=== PATIENT | male | born 1940 | race Caucasian/White ===

== ENCOUNTER → 2016-04-15 | Outpatient (CLI) | payer MEDICARE, BC ==
[2016-04-15 14:15] LABS: ABSOLUTE EOSINOPHILS # (AUTO) 0.1 10^3/uL (0.0-0.6); ABSOLUTE LYMPHOCYTES (AUTO) 2.1 10^3/uL (0.5-4.7); ABSOLUTE MONOCYTES (AUTO) 0.5 10^3/uL (0.1-1.4); ABSOLUTE NEUT (AUTO) 3.4 10^3/uL (1.7-8.2); BASOPHILS % (AUTO) 0.5 % (0-2); EOSINOPHILS % (AUTO) 1.9 % (0-6); HEMATOCRIT 34.7 % (37.9-51.0); HEMOGLOBIN 11.2 g/dL (13.5-17.0); HGB HCT DIFFERENCE -1.1; LYMPHOCYTES % (AUTO) 34.4 % (13-45); MEAN CORPUSCULAR HEMOGLOBIN 29.5 pg (27.0-33.4); MEAN CORPUSCULAR HGB CONC 32.3 g/dL (32.0-36.0); MEAN CORPUSCULAR VOLUME 91 fl (80-97); MONOCYTES % (AUTO) 8.3 % (3-13); RED BLOOD COUNT 3.79 10^6/uL (4.35-5.55); RED CELL DISTRIBUTION WIDTH 13.8 % (11.5-14.0); SEGMENTED NEUTROPHILS % (AUTO) 54.9 % (42-78); WHITE BLOOD COUNT 6.2 10^3/uL (4.0-10.5)
[2016-04-15 14:19] LABS: ALANINE AMINOTRANSFERASE 20 U/L (21-72); ALBUMIN 3.7 g/dL (3.5-5.0); ALKALINE PHOSPHATASE 43 U/L (38-126); ANION GAP 11 (5-19); ASPARTATE AMINO TRANSFERASE 17 U/L (17-59); BILIRUBIN,TOTAL 0.8 mg/dL (0.2-1.3); BLOOD UREA NITROGEN 15 mg/dL (7-20); CALCIUM 8.9 mg/dL (8.4-10.2); CARBON DIOXIDE 26 mmol/L (22-30); CHLORIDE 107 mmol/L (98-107); CREATININE RESULT 0.82 mg/dL (0.52-1.25); GLUCOSE 90 mg/dL (75-110); POTASSIUM 4.1 mmol/L (3.6-5.0); SODIUM 144.3 mmol/L (137-145); TOTAL PROTEIN 6.4 g/dL (6.3-8.2)
[2016-04-16 12:16] LABS: CHOLESTEROL 111.68 mg/dL (0-200); Direct HDL 43 mg/dL (>40); TRIGLYCERIDES 56 mg/dL (<150)
[2016-04-16 12:26] LABS: DIRECT LDL 58 mg/dL (<100)
== END ==
LOC: OD 12:36
PROVIDERS: ATTEND Internal Medicine
DX: E11.9 Type 2 diabetes mellitus without complications (principal); I10 Essential (primary) hypertension; E78.00 Pure hypercholesterolemia, unspecified; Z79.899 Other long term (current) drug therapy
CPT/HCPCS: 36415; 80053; 80061; 85025

== ENCOUNTER 2017-06-28 14:17 | Observation (INO) | payer BC, MEDICARE ==
--- NOTE | 2017-06-28 14:43 | ER Document Report ---
ED General - General Chief Complaint: General Weakness Stated Complaint: WEAKNESS Time Seen by Provider: 06/28/17 14:34 Mode of Arrival: Medic Information source: Patient, Emergency Med Personnel Notes: This is a 76-year-old man with a history of coronary artery disease (MA), CVA ( left weakness), diabetes with peripheral vascular disease (right BKA) who presents to the emergency room after an episode of generalized weakness and retrosternal nonradiating chest pain. EMS was called to the scene and they reported that his blood pressure was 115/73 with a pulse in the 50s, his Accu- Chek at that time was 143. He had already taken for aspirins (81 mg each). EMS reported that his chest pain had resolved by the time they arrived. Currently, he denies any weakness or chest pain TRAVEL OUTSIDE OF THE [place] IN LAST 30 DAYS: No - HPI Onset: Just prior to arrival Onset/Duration: Gradual Quality of pain: No pain Severity: None Pain Level: Denies Associated symptoms: Chest pain. denies: Fever, Shortness of breath Exacerbated by: Denies Relieved by: Denies Similar symptoms previously: No Recently seen / treated by doctor: No - Related Data Allergies/Adverse Reactions: No Known Allergies Allergy (Unverified 02/05/16 14:43) Past Medical History - General Information source: Patient - Social History Smoking Status: Never Smoker Cigarette use (# per day): No Chew tobacco use (# tins/day): No Frequency of alcohol use: None Drug Abuse: None Lives with: Family Family History: Reviewed & Not Pertinent Patient has suicidal ideation: No Patient has homicidal ideation: No - Past Medical History Cardiac Medical History: Reports: Hx Heart Attack, Hx Hypercholesterolemia, Hx Hypertension - WELL CONTROLLED Pulmonary Medical History: Denies: Hx Asthma Neurological Medical History: Reports: Hx Cerebrovascular Accident. Denies: Hx Seizures Endocrine Medical History: Reports: Hx Diabetes Mellitus Type 2 GI Medical History: Denies: Hx Hepatitis, Hx Hiatal Hernia, Hx Ulcer Infectious Medical History: Denies: Hx Hepatitis Past Surgical History: Denies: Hx Open Heart Surgery, Hx Pacemaker - Immunizations Hx Diphtheria, Pertussis, Tetanus Vaccination: Yes Review of Systems - Review of Systems Constitutional: denies: Chills, Fever EENT: No symptoms reported Cardiovascular: See HPI Respiratory: No symptoms reported Gastrointestinal: No symptoms reported Genitourinary: No symptoms reported Male Genitourinary: No symptoms reported Musculoskeletal: No symptoms reported Skin: No symptoms reported Hematologic/Lymphatic: No symptoms reported Neurological/Psychological: No symptoms reported Physical Exam - Vital signs Vitals: Pulse Ox 97 06/28/17 14:52 Notes: Physical exam: GENERAL: 76-year-old man, alert and oriented 3, no acute distress HEAD: Atraumatic, normocephalic. EYES: Pupils equal round and reactive to light, extraocular movements intact, sclera anicteric, conjunctiva are normal. ENT: TMs normal, nares patent, oropharynx clear without exudates. Moist mucous membranes. NECK: Normal range of motion, supple without obvious mass or JVD. LUNGS: Breath sounds clear to auscultation bilaterally and equal. No wheezes rales or rhonchi. HEART: Regular rate and rhythm without murmurs, rubs or gallops. ABDOMEN: Soft, normoactive bowel sounds. No tenderness to palpation. No guarding, no rebound. No masses appreciated. EXTREMITIES: Right BKA, left lower extremity with minimal edema, pulses 2+. NEUROLOGICAL: Cranial nerves II through XII grossly intact. Normal speech, moving all extremities. PSYCH: Normal mood, normal affect. SKIN: Warm, Dry, normal turgor, no rashes or lesions noted. Course - Vital Signs Vital signs: Temp Pulse Resp BP Pulse Ox 97.6 F 71 18 139/59 H 95 06/29/17 00:00 06/29/17 00:00 06/29/17 00:00 06/29/17 00:00 06/29/17 00:00 - Laboratory Result Diagrams: 06/28/17 13:40 06/28/17 13:40 Laboratory results interpreted by me: 06/28/17 06/28/17 13:40 13:40 RBC 3.78 L Hgb 11.4 L Hct 33.8 L BUN 25 H Est GFR (Non-Af Amer) 59 L Glucose 169 H Total Protein 6.2 L - Diagnostic Test Radiology reviewed: Image reviewed, Reports reviewed - CT showed old infarcts - EKG Interpretation by Me EKG shows normal: Sinus rhythm Rate: Bradycardia - EKG shows sinus bradycardia with a right bundle branch block , there are Q waves in 3-1/2, there is no acute ST depression or elevation. There is no EKG for comparison. Discharge - Discharge Clinical Impression: Chest pain Condition: Stable Disposition: ADMITTED OBSERVATION Admitting Provider: Hospitalist - Dr. Colon Unit Admitted: Telemetry
[2017-06-28 14:53] LABS: ABSOLUTE EOSINOPHILS # (AUTO) 0.1 10^3/uL (0.0-0.6); ABSOLUTE LYMPHOCYTES (AUTO) 2.1 10^3/uL (0.5-4.7); ABSOLUTE MONOCYTES (AUTO) 0.5 10^3/uL (0.1-1.4); ABSOLUTE NEUT (AUTO) 4.3 10^3/uL (1.7-8.2); BASOPHILS % (AUTO) 0.4 % (0-2); EOSINOPHILS % (AUTO) 2.1 % (0-6); HEMATOCRIT 33.8 % (37.9-51.0); HEMOGLOBIN 11.4 g/dL (13.5-17.0); LYMPHOCYTES % (AUTO) 30.3 % (13-45); MEAN CORPUSCULAR HEMOGLOBIN 30.1 pg (27.0-33.4); MEAN CORPUSCULAR HGB CONC 33.6 g/dL (32.0-36.0); MEAN CORPUSCULAR VOLUME 90 fl (80-97); MONOCYTES % (AUTO) 7.3 % (3-13); PLATELET COUNT 213 10^3/uL (150-450); RED BLOOD COUNT 3.78 10^6/uL (4.35-5.55); RED CELL DISTRIBUTION WIDTH 13.2 % (11.5-14.0); SEGMENTED NEUTROPHILS % (AUTO) 59.9 % (42-78); TOTAL CELLS COUNTED % (AUTO) 100 %; WHITE BLOOD COUNT 7.1 10^3/uL (4.0-10.5)
--- NOTE | 2017-06-28 14:57 | RADIOLOGY REPORT (SQ) ---
EXAM DESCRIPTION: CHEST SINGLE VIEW COMPLETED DATE/TIME: 06/28/2017 2:48 pm REASON FOR STUDY: chest pain COMPARISON: 12/27/2013 EXAM PARAMETERS: NUMBER OF VIEWS: One view. TECHNIQUE: Single frontal radiographic view of the chest acquired. RADIATION DOSE: NA LIMITATIONS: None. FINDINGS: LUNGS AND PLEURA: No opacities, masses or pneumothorax. No pleural effusion. MEDIASTINUM AND HILAR STRUCTURES: No masses. Contour normal. HEART AND VASCULAR STRUCTURES: Heart normal in size. Normal vasculature. BONES: No acute findings. HARDWARE: None in the chest. OTHER: No other significant finding. IMPRESSION: NO ACUTE RADIOGRAPHIC FINDING IN THE CHEST. TECHNICAL DOCUMENTATION: JOB ID: [id number] [email or web address]- All Rights Reserved Reading location - IP/workstation name: [email or web address]
[2017-06-28 15:09] LABS: ALANINE AMINOTRANSFERASE 26 U/L (21-72); ALBUMIN 3.8 g/dL (3.5-5.0); ALKALINE PHOSPHATASE 54 U/L (38-126); ANION GAP 11 (5-19); ASPARTATE AMINO TRANSFERASE 18 U/L (17-59); BILIRUBIN,DIRECT 0.1 mg/dL (0.0-0.4); BILIRUBIN,TOTAL 0.7 mg/dL (0.2-1.3); BLOOD UREA NITROGEN 25 mg/dL (7-20); CALCIUM 8.8 mg/dL (8.4-10.2); CARBON DIOXIDE 25 mmol/L (22-30); CHLORIDE 104 mmol/L (98-107); CREATINE KINASE 115 U/L (55-170); GLUCOSE 169 mg/dL (75-110); POTASSIUM 4.2 mmol/L (3.6-5.0); SODIUM 139.5 mmol/L (137-145); TOTAL PROTEIN 6.2 g/dL (6.3-8.2)
[2017-06-28] MEDS ORDERED: NORMAL SALINE 500 ML IV ONE (15:17)
[2017-06-28 15:21] LABS: CREATINE KINASE MB 2.11 ng/mL (<4.55)
[2017-06-28 15:22] LABS: TROPONIN I < 0.012 ng/mL
[2017-06-28] MEDS ORDERED: INSULIN LISPRO 100 UNIT/ML 3 ML VIAL SUBCUT PRN (17:22)
[2017-06-28] MEDS ORDERED: DEXTROSE 40% GEL 15 GM TUBE PO PRN ×2 (17:22)
[2017-06-28] MEDS ORDERED: DEXTROSE 50%-WATER 25 GM/50 ML DISP.SYRIN IV PRN ×2 (17:22)
[2017-06-28] MEDS ORDERED: GLUCAGON,HUMAN RECOMB 1 MG INJ IM PRN (17:22)
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
--- NOTE | 2017-06-28 17:42 | RADIOLOGY REPORT (SQ) ---
EXAM DESCRIPTION: CT HEAD WITHOUT COMPLETED DATE/TIME: 06/28/2017 5:32 pm REASON FOR STUDY: numbness G93.40 ENCEPHALOPATHY, UNSPECIFIED COMPARISON: None. TECHNIQUE: Axial images acquired through the brain without intravenous contrast. Images reviewed wi th bone, brain and subdural windows. Images stored on PACS. All CT scanners at this facility use dose modulation, iterative reconstruction, and/or weight based d osing when appropriate to reduce radiation dose to as low as reasonably achievable (ALARA). [facility]: Dose Right [facility]: CareDose [facility]: Dose Right [facility]: Teradose 4D [facility]: LaserLeap RADIATION DOSE: mGy. LIMITATIONS: None. FINDINGS: VENTRICLES: Prominent. CEREBRUM: No masses. No hemorrhage. No midline shift. Areas of low density in the white matter mos t likely due to chronic micro-vascular ischemic change. Small old infarct in the medial left occipit al lobe. No evidence for acute infarction. CEREBELLUM: No masses. No hemorrhage. Old infarct in the left cerebellar hemisphere. No evidence f or acute infarction. EXTRAAXIAL SPACES: Age-related involutional change. No fluid collections. No masses. ORBITS AND GLOBE: No intra- or extraconal masses. Normal contour of globe without masses. CALVARIUM: No fracture. PARANASAL SINUSES: No fluid or mucosal thickening. SOFT TISSUES: No mass or hematoma. OTHER: No other significant finding. IMPRESSION: CHRONIC CHANGES OF ATROPHY AND MICROVASCULAR ISCHEMIA. OLD INFARCTS IN THE LEFT CEREBEL LAR HEMISPHERE AND MEDIAL LEFT OCCIPITAL LOBE. NO ACUTE PROCESS. EVIDENCE OF ACUTE STROKE: NO. TECHNICAL DOCUMENTATION: JOB ID: [id number] Quality ID # [id number]: Final reports with documentation of one or more dose reduction techniques (e.g., Au tomated exposure control, adjustment of the mA and/or kV according to patient size, use of iterative reconstruction technique) 2010 [employer]- All Rights Reserved Reading location - IP/workstation name: [email or web address]
--- NOTE | 2017-06-28 19:06 | EKG REPORT ---
SEVERITY:- ABNORMAL ECG - SINUS RHYTHM RBBB AND LPFB INFERIOR INFARCT, AGE INDETERMINATE : Confirmed by: Eric Graf MD 28-Jun-2017 19:05:06
[2017-06-28] MEDS: METOPROLOL SUCCINATE 25 MG TAB.SR.24H PO SCH (20:26)
[2017-06-28] MEDS ORDERED: TAMSULOSIN HCL 0.4 MG CAP.SR.24H PO SCH (22:00)
[2017-06-29 05:26] LABS: HEMATOCRIT 31.8 % (37.9-51.0); HEMOGLOBIN 10.8 g/dL (13.5-17.0); MEAN CORPUSCULAR HEMOGLOBIN 30.6 pg (27.0-33.4); MEAN CORPUSCULAR HGB CONC 34.1 g/dL (32.0-36.0); MEAN CORPUSCULAR VOLUME 90 fl (80-97); PLATELET COUNT 181 10^3/uL (150-450); RED BLOOD COUNT 3.53 10^6/uL (4.35-5.55); RED CELL DISTRIBUTION WIDTH 13.3 % (11.5-14.0); WHITE BLOOD COUNT 5.5 10^3/uL (4.0-10.5)
[2017-06-29 05:58] LABS: ANION GAP 9 (5-19); BLOOD UREA NITROGEN 24 mg/dL (7-20); CALCIUM 8.9 mg/dL (8.4-10.2); CARBON DIOXIDE 25 mmol/L (22-30); CHLORIDE 108 mmol/L (98-107); CHOLESTEROL 134.87 mg/dL (0-200); GLUCOSE 109 mg/dL (75-110); SODIUM 142.1 mmol/L (137-145); TRIGLYCERIDES 114 mg/dL (<150)
[2017-06-29 06:09] LABS: DIRECT LDL 77 mg/dL (<100)
[2017-06-29 08:29] VITALS: BP 130/78
[2017-06-29] MEDS: METOPROLOL SUCCINATE 25 MG TAB.SR.24H PO SCH (09:16)
[2017-06-29] MEDS ORDERED: LISINOPRIL 5 MG TABLET PO SCH (10:00)
[2017-06-29] MEDS ORDERED: DONEPEZIL HCL 5 MG TABLET PO SCH (10:00)
[2017-06-29] MEDS ORDERED: ENOXAPARIN SODIUM INJ 40 MG/0.4 ML DISP.SYRIN SUBCUT SCH (10:00)
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
== END 2017-06-29 14:21 | disposition home or self-care (01) ==
LOC: ER 14:17 → EH 16:27 → 4S 18:49
PROVIDERS: ADMIT Internal Medicine; ATTEND Internal Medicine
DX: R07.9 Chest pain, unspecified (principal); I45.10 Unspecified right bundle-branch block; I10 Essential (primary) hypertension; E11.51 Type 2 diabetes mellitus with diabetic peripheral angiopathy without gangrene; I69.354 Hemiplegia and hemiparesis following cerebral infarction affecting left non-dominant side; I25.10 Atherosclerotic heart disease of native coronary artery without angina pectoris; F03.90 Unspecified dementia, unspecified severity, without behavioral disturbance, psychotic disturbance, mood disturbance, and anxiety; I25.2 Old myocardial infarction; Z89.511 Acquired absence of right leg below knee
CPT/HCPCS: 93005; 99285; 96360; 36415 ×2; 82553; 82962 ×2; 82550; 85025; 85027; 80048; 80053; 84484; 83036; 80061; 71045; 70450; 93010; G0378 ×3; A9270 ×5; J1650; J3490; J7040; J1815

== ENCOUNTER 2018-06-18 00:41 | Emergency (ER) | payer MEDICARE ==
--- NOTE | 2018-06-18 01:39 | ER Document Report ---
Addendum entered and electronically signed by YG MCCLOUD LCSWA 06/18/18 13:36: Discharge - Discharge Clinical Impression: Dementia Qualifiers: Dementia type: unspecified type Dementia behavioral disturbance: with behavioral disturbance Qualified Code(s): F03.91 - Unspecified dementia with behavioral disturbance Clinical Impression: (Ruled Out): Mental disorder Condition: Stable Disposition: HOME, SELF-CARE Additional Instructions: You have been evaluated both medical and behavioral health teams have been deemed appropriate for discharge. You are highly encouraged to follow-up with neurology. You have been provided prescriptions for Depakote 250 mg twice daily, BuSpar 5 mg twice daily, and risperidone 0.25 mg every morning at 8 AM and every afternoon at 4 PM as needed; please take as directed. You have been p rovided resources for both assisted living and nursing homes In addition to mobile crisis contact information. AT ANY TIME, IF YOUR SYMPTOMS CHANGE SIGNIFICANTLY OR WORSEN OR YOU DEVELOP NEW SYMPTOMS, RETURN TO THE EMERGENCY DEPARTMENT IMMEDIATELY FOR RE-EVALUATION. Referrals: ELIO PEREZ MD [Primary Care Provider] - Follow up as needed [facility] Team [Outside] - Follow up as needed Original Note: ED General - General Chief Complaint: Psych Problem Stated Complaint: IVC Time Seen by Provider: 06/18/18 01:39 Notes: Patient is a 77-year-old male that presents to the emergency department for chief complaint of domestic argument. Patient states that he got into an argument with his earlier this morning, she apparently got in her car and he believes she drove to her son's house and she called police and filled out IVC paperwork, alleging that the patient has a making threats towards family members and has been aggressive, he apparently is on medication but may not be taking it as directed and therefore IVC paperwork was filled out. At this time the patient is very pleasant, denies having any pain, denies any complaints, denies hallucinations, and denies threatening anybody, stating he only got into an argument. He denies any physical altercations. Past Medical History: Diabetes, peripheral vascular disease, dementia Past Surgical History: Right lower extremity amputation Social History: Denies tobacco, alcohol or illicit drug use. Lives at home with family. Family History: Reviewed and noncontributory for presenting illness Allergies: Reviewed, see documented allergy list. REVIEW OF SYSTEMS: Other than noted above, the 12 point review of systems was reviewed with the patient and were negative, all pertinent findings are included in the HPI. PHYSICAL EXAMINATION: Vital signs reviewed, nursing noted reviewed. GENERAL: Well-appearing, well-nourished and in no acute distress. HEAD: Atraumatic, normocephalic. EYES: Eyes appear normal, extraocular movements intact, sclera anicteric, conjunctiva are normal. ENT: nares patent, oropharynx clear without exudates. Moist mucous membranes. NECK: Normal range of motion, supple without lymphadenopathy LUNGS: Breath sounds clear to auscultation bilaterally and equal. No wheezes rales or rhonchi. HEART: Regular rate and rhythm without murmurs ABDOMEN: Soft, nontender, normoactive bowel sounds. No rebound, guarding, or rigidity. No masses appreciated. EXTREMITIES: Right below the knee amputation, patient has 3+ pitting edema in the left lower extremity, no signs of cellulitis, nontender to palpate, the rest the extremity exam is grossly unremarkable. NEUROLOGICAL: No focal neurological deficits. Moves all extremities spontaneously Motor and sensory grossly intact on exam. PSYCH: Normal mood, normal affect. SKIN: Warm, Dry, normal turgor, no rashes or lesions noted on exposed skin TRAVEL OUTSIDE OF THE [place] IN LAST 30 DAYS: No - Related Data Allergies/Adverse Reactions: No Known Allergies Allergy (Unverified 02/05/16 14:43) Past Medical History - Social History Smoking Status: Never Smoker Family History: Reviewed & Not Pertinent - Past Medical History Cardiac Medical History: Reports: Hx Heart Attack, Hx Hypercholesterolemia, Hx Hypertension - WELL CONTROLLED Pulmonary Medical History: Denies: Hx Asthma Neurological Medical History: Reports: Hx Cerebrovascular Accident. Denies: Hx Seizures Endocrine Medical History: Reports: Hx Diabetes Mellitus Type 2 Renal/ Medical History: Denies: Hx Peritoneal Dialysis GI Medical History: Denies: Hx Hepatitis, Hx Hiatal Hernia, Hx Ulcer Infectious Medical History: Denies: Hx Hepatitis Past Surgical History: Denies: Hx Open Heart Surgery, Hx Pacemaker - Immunizations Hx Diphtheria, Pertussis, Tetanus Vaccination: Yes Physical Exam - Vital signs Vitals: Temp Pulse Resp BP Pulse Ox 98.2 F 70 17 139/64 H 96 06/18/18 01:05 06/18/18 01:05 06/18/18 01:05 06/18/18 01:05 06/18/18 01:05 Course - Re-evaluation Re-evalutation: Patient seen and examined, vital signs reviewed. Medical screening testing was ordered including bloodwork, EKG, and toxicology. Results of testing were reviewed. Testing demonstrated mild elevation of the patient's renal function from prior studies, will give him a 500 mL fluid bolus, possible mild dehydration. Patient has been stable from a hemodynamic standpoint. At this point I feel that the patient is medically cleared and can be further evaluated from a psychiatric standpoint for final disposition from the emergency department. Patient updated on plan of care. Laboratory 06/18/18 06/18/18 01:45 01:45 WBC 6.0 RBC 3.77 L Hgb 11.6 L Hct 33.8 L MCV 90 MCH 30.8 MCHC 34.3 RDW 13.2 Plt Count 190 Seg Neutrophils % 47.5 Lymphocytes % 39.3 Monocytes % 9.9 Eosinophils % 2.9 Basophils % 0.4 Absolute Neutrophils 2.8 Absolute Lymphocytes 2.3 Absolute Monocytes 0.6 Absolute Eosinophils 0.2 Absolute Basophils 0.0 Sodium 139.3 Potassium 4.5 Chloride 105 Carbon Dioxide 23 Anion Gap 11 BUN 28 H Creatinine 1.28 H Est GFR ( Amer) > 60 Est GFR (Non-Af Amer) 54 L Glucose 262 H Calcium 9.0 Total Bilirubin 0.6 Direct Bilirubin 0.2 Neonat Total Bilirubin Not Reportable Neonat Direct Bilirubin Not Reportable Neonat Indirect Bili Not Reportable AST 13 L ALT 11 L Alkaline Phosphatase 55 Total Protein 6.8 Albumin 3.9 Salicylates < 1.0 L Acetaminophen < 10 L Serum Alcohol < 10 - Vital Signs Vital signs: Temp Pulse Resp BP Pulse Ox 98.2 F 70 17 139/64 H 96 06/18/18 01:05 06/18/18 01:05 06/18/18 01:05 06/18/18 01:05 06/18/18 01:05 - Laboratory Result Diagrams: 06/18/18 01:45 06/18/18 01:45 Laboratory results interpreted by me: 06/18/18 06/18/18 01:45 01:45 RBC 3.77 L Hgb 11.6 L Hct 33.8 L BUN 28 H Creatinine 1.28 H Est GFR (Non-Af Amer) 54 L Glucose 262 H AST 13 L ALT 11 L Salicylates < 1.0 L Acetaminophen < 10 L - EKG Interpretation by Me Additional EKG results interpreted by me: EKG demonstrates sinus rhythm with first-degree AV block with a ventricular rate of 62 bpm, normal axis, normal intervals, T wave inversions in leads III and aVF, this is compared with the prior EKG from 06/28/2017, without significant change. Discharge - Discharge Clinical Impression: Mental disorder Condition: Stable Disposition: PSYCH HOSP/UNIT
[2018-06-18 02:11] LABS: ABSOLUTE EOSINOPHILS # (AUTO) 0.2 10^3/uL (0.0-0.6); ABSOLUTE LYMPHOCYTES (AUTO) 2.3 10^3/uL (0.5-4.7); ABSOLUTE MONOCYTES (AUTO) 0.6 10^3/uL (0.1-1.4); ABSOLUTE NEUT (AUTO) 2.8 10^3/uL (1.7-8.2); BASOPHILS % (AUTO) 0.4 % (0-2); EOSINOPHILS % (AUTO) 2.9 % (0-6); HEMATOCRIT 33.8 % (37.9-51.0); HEMOGLOBIN 11.6 g/dL (13.5-17.0); LYMPHOCYTES % (AUTO) 39.3 % (13-45); MEAN CORPUSCULAR HEMOGLOBIN 30.8 pg (27.0-33.4); MEAN CORPUSCULAR HGB CONC 34.3 g/dL (32.0-36.0); MEAN CORPUSCULAR VOLUME 90 fl (80-97); MONOCYTES % (AUTO) 9.9 % (3-13); PLATELET COUNT 190 10^3/uL (150-450); RED BLOOD COUNT 3.77 10^6/uL (4.35-5.55); RED CELL DISTRIBUTION WIDTH 13.2 % (11.5-14.0); SEGMENTED NEUTROPHILS % (AUTO) 47.5 % (42-78); TOTAL CELLS COUNTED % (AUTO) 100 %
[2018-06-18 02:22] LABS: ALANINE AMINOTRANSFERASE 11 U/L (21-72); ALBUMIN 3.9 g/dL (3.5-5.0); ALKALINE PHOSPHATASE 55 U/L (38-126); ANION GAP 11 (5-19); ASPARTATE AMINO TRANSFERASE 13 U/L (17-59); BILIRUBIN,DIRECT 0.2 mg/dL (0.0-0.4); BILIRUBIN,TOTAL 0.6 mg/dL (0.2-1.3); BLOOD UREA NITROGEN 28 mg/dL (7-20); CARBON DIOXIDE 23 mmol/L (22-30); CHLORIDE 105 mmol/L (98-107); GLUCOSE 262 mg/dL (75-110); POTASSIUM 4.5 mmol/L (3.6-5.0); SODIUM 139.3 mmol/L (137-145); TOTAL PROTEIN 6.8 g/dL (6.3-8.2)
[2018-06-18 02:26] LABS: ACETAMINOPHEN < 10 ug/mL (10-30); ALCOHOL < 10 mg/dL (NONE DETECTED); SALICYLATE < 1.0 mg/dL (2.0-20.0)
[2018-06-18] MEDS ORDERED: NORMAL SALINE 500 ML IV ONE (02:28)
[2018-06-18 03:40] LABS: APPEARANCE,URINE CLEAR; BILIRUBIN,URINE NEGATIVE (NEGATIVE); COLOR,URINE STRAW; GLUCOSE, URINE 50 mg/dL (NEGATIVE); KETONES,URINE NEGATIVE (NEGATIVE); LEUKOCYTE ESTERASE,URINE NEGATIVE (NEGATIVE); NITRITE,URINE NEGATIVE (NEGATIVE); PROTEIN,URINE NEGATIVE (NEGATIVE); URINE SPECIFIC GRAVITY 1.011; UROBILINOGEN,URINE NEGATIVE mg/dL (<2.0)
[2018-06-18 03:58] LABS: URINE AMPHETAMINES SCREEN NEGATIVE; URINE BARBITURATES SCREEN NEGATIVE; URINE BENZODIAZEPINES SCREEN NEGATIVE; URINE COCAINE SCREEN NEGATIVE; URINE MARIJUANA (THC) SCREEN NEGATIVE; URINE METHADONE SCREEN NEGATIVE; URINE PHENCYCLIDINE SCREEN NEGATIVE
--- NOTE | 2018-06-18 10:08 | ER Document Report ---
Doctor's Note Notes: 06/18/18 10:03 Patient with no complaints this morning. No issues per nursing. Labs within normal limits. Vitals stable. Mental health to see.
[2018-06-18] MEDS ORDERED: RISPERIDONE 0.25 MG TABLET PO ONE (13:56)
[2018-06-18 16:10] VITALS: BP 156/55
--- NOTE | 2018-06-18 23:00 | EKG REPORT ---
SEVERITY:- ABNORMAL ECG - SINUS RHYTHM RBBB AND LPFB INFERIOR INFARCT, AGE INDETERMINATE : Confirmed by: Kevin Amaya 18-Jun-2018 22:59:21
--- NOTE | 2018-06-19 13:48 | PSYCHOLOGICAL NOTE ---
Psych Note - Psych Note Date seen by psych provider: 06/18/18 Time seen by psych provider: 07:45 Psych Note: Reason for Consult: IVC Consent permissions: Patient's , Jayne Patient is a 77-year-old male that presents to the emergency department under IVC for chief complaint of domestic argument. Patient discloses that he arrived after "me and my had a heated argument... I think she called that is why I am here." Patient reports this is never happened before. He denies any thoughts of wanting to harm himself or others; patient's tone becomes more aggressive and he became louder. When asked why patient was becoming was set for these questions he reports that he had been asked these multiple times and has stated multiple times that he is not having thoughts of wanting harm himself or others and states that he should not have to have come in here just because he got into what argument with his . He denies any other mental health concerns and states he does not have a mental health diagnosis. He reports that he has had the same doctor for many years; Dr. Franco. Clinician spoke with patient's Roro who reports that the patient started argument and just "blew up." She reports that he has had a "terrible temper" and will start shaking and swinging his walking stick at her. She reports that this happens quite a few times in the last 5 years. She denies this happened prior to that identifying that since his leg was amputated she was told he lost significant amount of blood and they were concerned that it may affect his memory her mind. She denies that the patient has a neurologist however identifies that he wakes up happy however by afternoon he starts to get angry and by night behaviors become significant. Clinician discussed obtaining neurological evaluation. Chart review conducted patient had head CT On 06/28/2017 which noted chronic changes of atrophy and microvascular ischemia changes. An old infarct in the left cerebellar hemisphere and medial left occipital lobe was also noted. Patient is alert and orientated to person, place, time and circumstance. Mood is overall euthymic however does become irritable on end of evaluation (this was due to the patient not wanting to answer questions he felt he had answered on multiple occasions); congruent affect. Patient denies suicidal and homicidal ideation. Delusions are absent behaviors congruent with intact reality based presentation i.e. organized and linear thought process. Eye contact is well- maintained. Conversational speech is within normal rate, tone and prosody. Intellectual abilities appear to be within the average range. Attention and concentration are fair. Insight, judgment, impulse control are fair. Medication recommendations per [facility]'s contracted psychiatrist Dr. Francine URIAS are as follows Depakote 250 mg twice daily BuSpar 5 mg twice daily risperidone 0.25mg every morning at 8 AM and every evening at 4 PM as needed Probable unspecified neurocognitive degenerative disease; please consult neurology Impression\\plan: Patient is recommended for rescind of IVC and is cleared from acute psychiatric services. Patient does not meet IVC criteria per [place] GS 122C. Patient presents with probable neurocognitive degenerative disease and is recommended to follow-up with neurology. Medication recommendations have been provided to assist with behavioral difficulties. Resources have been provided to patient's in regards to higher level of care i.e. [place] [facility] or memory care units. Clinician discussed in depth importance of going to neurology for a formal diagnosis. Dr. Ly was consulted to care management this patient; attending physicians in agreement with recommendations and disposition.
== END 2018-06-18 15:50 | disposition home or self-care (01) ==
LOC: ER 00:41
DX: F03.91 Unspecified dementia, unspecified severity, with behavioral disturbance (principal); E11.51 Type 2 diabetes mellitus with diabetic peripheral angiopathy without gangrene; I44.0 Atrioventricular block, first degree; R60.0 Localized edema; I10 Essential (primary) hypertension; Z63.0 Problems in relationship with spouse or partner
CPT/HCPCS: 93005; 99285; 96360; 36415; 80307 ×4; 85025; 80053; 81001; 93010; A9270; J7040; J3490

== ENCOUNTER 2019-11-24 22:31 | Inpatient (IN) | payer MEDICARE ==
--- NOTE | 2019-11-17 23:09 | ER Document Report ---
ED General - General Chief Complaint: Altered Mental Status Stated Complaint: INCREASING AMS Time Seen by Provider: 11/17/19 22:52 Notes: Patient is a 79-year-old male who comes emergency department for chief complaint of worsening altered mental status, confusion, and combativeness at home. EMS gave patient 2.5 mg IM Versed because he was combative on arrival. Patient currently lives at home with his family. No reported symptoms or injuries per EMS, he has not had a fever, he did not have a fall. Patient has dementia and is confused at baseline, he has hypertension, type 2 diabetes, hyperlipidemia. He is not on a blood thinner. Patient has a right BKA. Patient has a letter with him from home stating tests that he needs to have performed for him to be placed in long-term care with a note written presumably by his primary care provider stating that he needs long-term care placement. TRAVEL OUTSIDE OF THE [place] IN LAST 30 DAYS: No - Related Data Allergies/Adverse Reactions: No Known Allergies Allergy (Verified 06/30/18 11:52) Home Medications: Janumet XR, Pravastatin, Quetiapine fumarate, Glimepiride, Lisinopril, Metroprolol, Isosorbide mononitrate Past Medical History - General Information source: Emergency Med Personnel - Social History Smoking Status: Unknown if Ever Smoked Frequency of alcohol use: None Drug Abuse: None Lives with: Family Family History: Reviewed & Not Pertinent - Past Medical History Cardiac Medical History: Reports: Hx Heart Attack, Hx Hypercholesterolemia, Hx Hypertension - WELL CONTROLLED Pulmonary Medical History: Denies: Hx Asthma Neurological Medical History: Reports: Hx Cerebrovascular Accident. Denies: Hx Seizures Endocrine Medical History: Reports: Hx Diabetes Mellitus Type 2 Renal/ Medical History: Denies: Hx Peritoneal Dialysis GI Medical History: Denies: Hx Hepatitis, Hx Hiatal Hernia, Hx Ulcer Infectious Medical History: Denies: Hx Hepatitis Past Surgical History: Denies: Hx Open Heart Surgery, Hx Pacemaker - Immunizations Hx Diphtheria, Pertussis, Tetanus Vaccination: Yes Review of Systems - Review of Systems Constitutional: No symptoms reported EENT: No symptoms reported Cardiovascular: No symptoms reported Respiratory: No symptoms reported Gastrointestinal: No symptoms reported Genitourinary: No symptoms reported Male Genitourinary: No symptoms reported Musculoskeletal: No symptoms reported Skin: No symptoms reported Hematologic/Lymphatic: No symptoms reported Neurological/Psychological: See HPI Physical Exam - Vital signs Vitals: Resp BP 18 120/49 L 11/17/19 22:55 11/17/19 22:55 - Notes Notes: GENERAL: Alert, interacts well. No acute distress. HEAD: Normocephalic, atraumatic. EYES: Pupils equal, round, and reactive to light. Extraocular movements intact. ENT: Oral mucosa moist, tongue midline. Oropharynx unremarkable. Airway patent. NECK: Full range of motion. Supple. Trachea midline. No lymphadenopathy. LUNGS: Clear to auscultation bilaterally, no wheezes, rales, or rhonchi. No respiratory distress. Non-tender chest wall. HEART: Regular rate and rhythm. No murmur ABDOMEN: Soft, non-tender. Non-distended. EXTREMITIES: Right BKA. Otherwise unremarkable. BACK: no cervical, thoracic, lumbar midline tenderness. No saddle anesthesia, normal distal neurovascular exam. NEUROLOGICAL: Alert but not answering any questions appropriately. Normal speech. Cranial nerves II through XII grossly intact. Strength 5/5 in all extremities. PSYCH: Normal affect, normal mood. SKIN: Warm, dry, normal turgor. No rashes or lesions noted. Course - Re-evaluation Re-evalutation: Patient initially cooperative but demented and confused, he initially cooperated with full work-up as well. He has no signs of trauma, physical examination is unremarkable except for his confusion. Vital signs unremarkable. I did reevaluate patient, patient attempted to strike me with his right fist and started yelling "you are an asshole" at me. He continued to repeat this and appeared very agitated and angry. I was unable to console or talk patient down from this. As result patient was given Haldol IM and responded to this well. This was a significant change from patient being friendly and cooperative on my initial evaluation. CT of the head unremarkable, chest X unremarkable, CBC, chemistry showing slightly elevated creatinine at 1.5 but no significant change from prior. Troponin is not significantly elevated. EKG does show what appears to be atrial fibrillation, I do not have record of this in the past. I discussed with Dr. Hubbard. EKG was repeated and again appears to show atrial fibrillation with controlled rate. Patient is on metoprolol. He does not recommend anticoagulation at this time, he does not feel that patient requires hospitalization for work-up of rate control new onset A. fib, he states that patient can simply routinely see primary care in regards to this given the situation. Urinalysis unremarkable. I discussed disposition, we discussed with family and they state that they cannot pick him up and cannot care for him and have run into difficulties trying to get him into local long-term care. As result case management will be consulted and patient will become a social hold. - Vital Signs Vital signs: Temp Pulse Resp BP Pulse Ox 98 F 100 20 118/55 L 98 11/18/19 05:20 11/18/19 05:20 11/18/19 05:20 11/18/19 05:20 11/18/19 05:20 - Laboratory Result Diagrams: 11/18/19 00:23 11/18/19 00:23 Laboratory results interpreted by me: 11/18/19 11/18/19 11/18/19 00:23 00:23 03:50 RDW 14.2 H Seg Neutrophils % 79.0 H BUN 38 H Creatinine 1.52 H Est GFR ( Amer) 54 L Est GFR (MDRD) Non-Af 44 L Glucose 145 H Urine Ketones TRACE H - EKG Interpretation by Me Additional EKG results interpreted by me: EKG shows atrial fibrillation without rapid ventricular response. Right bundle branch block present but this is not new. No T wave inversions or ST segment changes in consecutive leads. No significant change from prior except for the atrial fibrillation. Discharge - Discharge Clinical Impression: Inability to perform activities of daily living, Aggressive behavior Dementia Qualifiers: Dementia type: unspecified type Dementia behavioral disturbance: with behavioral disturbance Qualified Code(s): F03.91 - Unspecified dementia with behavioral disturbance Condition: Stable Disposition: PSYCH HOSP/UNIT
[2019-11-17] MEDS: HALOPERIDOL 5 MG TABLET PO ONE ×2 (23:35→23:37)
--- NOTE | 2019-11-17 23:46 | RADIOLOGY REPORT (SQ) ---
EXAM DESCRIPTION: XR CHEST 1 VIEW COMPLETED DATE/TME: 11/17/2019 23:04 CLINICAL HISTORY: 79 years, Male, AMS COMPARISON: 06/28/2017 chest NUMBER OF VIEWS: 1 TECHNIQUE: Portable chest LIMITATIONS: None. FINDINGS: The heart size is stable. Mild atheromatous change of the thoracic aorta. Minor fibrotic changes in the lung bases. Lungs are otherwise clear. No pneumothorax IMPRESSION: No acute cardiopulmonary process copyright 2010 [employer]- All Rights Reserved
--- NOTE | 2019-11-17 23:59 | RADIOLOGY REPORT (SQ) ---
EXAM DESCRIPTION: RadLex: CT HEAD WITHOUT IV CONTRAST CLINICAL HISTORY: 79 years Male; AMS; TECHNIQUE: Noncontrast CT head. All CT scans at this facility use dose modulation, iterative reconstruction, and/or weight based dosing when appropriate to reduce radiation dose to as low as reasonably achievable. COMPARISON: CT 06/28/2017 FINDINGS: No acute hemorrhage or mass effect. Encephalomalacia in the left cerebellar hemisphere and both occipital lobes is again noted. No acute cortical edema. Mild low-density changes in the cerebral white matter are again noted, nonspecific but typical for chronic small vessel disease. Ventricles and cisterns are preserved. Visualized portions of paranasal sinuses and mastoids are clear. Visualized portions of the calvarium are within normal limits. IMPRESSION: 1. No acute intracranial findings. 2. Chronic ischemic changes as on prior exam.
[2019-11-18 00:50] LABS: ABSOLUTE EOSINOPHILS # (AUTO) 0.1 10^3/uL (0.0-0.6); ABSOLUTE LYMPHOCYTES (AUTO) 1.1 10^3/uL (0.5-4.7); ABSOLUTE MONOCYTES (AUTO) 0.5 10^3/uL (0.1-1.4); ABSOLUTE NEUT (AUTO) 6.3 10^3/uL (1.7-8.2); BASOPHILS % (AUTO) 0.2 % (0-2); EOSINOPHILS % (AUTO) 0.7 % (0-6); HEMATOCRIT 42.1 % (37.9-51.0); HEMOGLOBIN 14.2 g/dL (13.5-17.0); LYMPHOCYTES % (AUTO) 13.9 % (13-45); MEAN CORPUSCULAR HEMOGLOBIN 30.8 pg (27.0-33.4); MEAN CORPUSCULAR HGB CONC 33.9 g/dL (32.0-36.0); MEAN CORPUSCULAR VOLUME 91 fl (80-97); MONOCYTES % (AUTO) 6.2 % (3-13); PLATELET COUNT 206 10^3/uL (150-450); RED BLOOD COUNT 4.62 10^6/uL (4.35-5.55); RED CELL DISTRIBUTION WIDTH 14.2 % (11.5-14.0); TOTAL CELLS COUNTED % (AUTO) 100 %
[2019-11-18 01:06] LABS: ALBUMIN 4.4 g/dL (3.5-5.0); ALKALINE PHOSPHATASE 55 U/L (38-126); ANION GAP 12 (5-19); ASPARTATE AMINO TRANSFERASE 29 U/L (17-59); BILIRUBIN,TOTAL 1.1 mg/dL (0.2-1.3); BLOOD UREA NITROGEN 38 mg/dL (7-20); CALCIUM 9.5 mg/dL (8.4-10.2); CARBON DIOXIDE 27 mmol/L (22-30); CHLORIDE 104 mmol/L (98-107); GLUCOSE 145 mg/dL (75-110); POTASSIUM 4.8 mmol/L (3.6-5.0); TOTAL PROTEIN 7.6 g/dL (6.3-8.2)
[2019-11-18 04:18] LABS: APPEARANCE,URINE CLEAR; BILIRUBIN,URINE NEGATIVE (NEGATIVE); COLOR,URINE YELLOW; GLUCOSE, URINE NEGATIVE (NEGATIVE); KETONES,URINE TRACE mg/dL (NEGATIVE); LEUKOCYTE ESTERASE,URINE NEGATIVE (NEGATIVE); NITRITE,URINE NEGATIVE (NEGATIVE); PROTEIN,URINE NEGATIVE (NEGATIVE); URINE SPECIFIC GRAVITY 1.015; UROBILINOGEN,URINE NEGATIVE mg/dL (<2.0)
--- NOTE | 2019-11-18 10:09 | EKG REPORT ---
SEVERITY:- ABNORMAL ECG - ATRIAL FIBRILLATION VENTRICULAR PREMATURE COMPLEXES RBBB AND LPFB : Confirmed by: Kevin Amaya 18-Nov-2019 10:08:08
--- NOTE | 2019-11-18 10:09 | EKG REPORT ---
SEVERITY:- ABNORMAL ECG - ATRIAL FIBRILLATION, V-RATE 51-87 RBBB AND LPFB PROBABLE INFERIOR INFARCT, AGE INDETERMINATE : Confirmed by: Kevin Amaya 18-Nov-2019 10:08:19
[2019-11-18] MEDS: GLIMEPIRIDE 4 MG TABLET PO SCH ×2 (10:32→18:21)
[2019-11-18] MEDS: ISOSORBIDE MONONITRATE 20 MG TABLET PO SCH ×3 (10:32→18:33)
[2019-11-18] MEDS: METOPROLOL SUCCINATE 25 MG TAB.SR.24H PO SCH ×2 (10:32→18:22)
[2019-11-18] MEDS: LISINOPRIL 5 MG TABLET PO SCH (10:32)
--- NOTE | 2019-11-18 12:01 | PSYCHOLOGICAL NOTE ---
Psych Note - Psych Note Date seen by psych provider: 11/18/19 Time seen by psych provider: 11:30 Psych Note: Reason for Consult: Medication recommendations Patient is unable to engage in evaluation due to AMS. Chart review conducted. Patient was seen by the behavioral health team on 06/19/2019 and was provided medication recommendations; unfortunately, patient's PCM did not follow recommendations. Patient's behaviors have continued and family report they are unable to continue caring for the patient. Medication recommendations per [facility]'s contracted psychiatrist Dr. Francine URIAS are as follows: Please discontinue home medications of prozac and seroquel Please start Depakote 250 mg twice daily Please start BuSpar 5 mg twice daily Please start risperidone 0.25mg every morning at 8 AM and every evening at 4 PM as needed Impression\plan: Patient is cleared from acute psychiatric services. Patient presents with probable neurocognitive degenerative disease and is recommended to follow-up with neurology. Medication recommendations have been provided to assist with behavioral difficulties. Dr. Ly was consulted to care management this patient; attending physicians in agreement with recommendations and disposition.
[2019-11-18] MEDS: RISPERIDONE 0.25 MG TABLET PO SCH (18:20)
[2019-11-18] MEDS: DIVALPROEX SODIUM 250 MG TABLET.DR PO SCH (18:21)
[2019-11-18] MEDS: BUSPIRONE HCL 10 MG TABLET PO SCH (18:22)
[2019-11-19] MEDS: RISPERIDONE 0.25 MG TABLET PO SCH ×2 (10:16→22:42)
[2019-11-19] MEDS: GLIMEPIRIDE 4 MG TABLET PO SCH ×2 (10:16→22:45)
[2019-11-19] MEDS: BUSPIRONE HCL 10 MG TABLET PO SCH ×2 (10:16→22:42)
[2019-11-19] MEDS: DIVALPROEX SODIUM 250 MG TABLET.DR PO SCH ×2 (10:16→22:42)
[2019-11-19] MEDS: METOPROLOL SUCCINATE 25 MG TAB.SR.24H PO SCH ×2 (10:16→22:42)
[2019-11-19] MEDS: ISOSORBIDE MONONITRATE 20 MG TABLET PO SCH ×3 (10:17→22:26)
[2019-11-19] MEDS: LISINOPRIL 5 MG TABLET PO SCH (10:17)
--- NOTE | 2019-11-19 12:36 | ER Document Report ---
Doctor's Note Notes: 11/19/19 12:34 Patient seen and examined. He was eating breakfast. He states he slept well. He has no complaints of pain or other issues. Labs reviewed, largely unremarkable. Is a very pleasant 79-year-old gentleman appears his stated age, no acute distress. Head is normocephalic and atraumatic, heart is regular rate and rhythm, lungs are clear to auscultation bilaterally. Left lower extremity without cyanosis or clubbing. Right stump from BKA intact. Patient is awaiting placement, history of dementia. Cleared from psychosocial services, medication changes made based on psychiatry recommendations. TB skin test and daily weights ordered as per case management recommendations. 11/19/19 15:46 Patient's son presents, patient often gets constipated. Patient's son notes that he has had to give him enemas/disimpact him. I did order an x-ray, which reveals a large amount of stool in the rectal vault, moderate constipation. I did order a soapsuds enema, as well as Colace twice daily.
--- NOTE | 2019-11-19 15:24 | RADIOLOGY REPORT (SQ) ---
EXAM DESCRIPTION: KUB/ABDOMEN (SINGLE VIEW) IMAGES COMPLETED DATE/TIME: 11/19/2019 3:12 pm REASON FOR STUDY: constipation COMPARISON: None. NUMBER OF VIEWS: One view. TECHNIQUE: Supine radiographic image of the abdomen acquired. LIMITATIONS: None. FINDINGS: BOWEL GAS PATTERN: Nonspecific bowel gas pattern. No dilated loops identified. CONSTIPATION: moderate CALCIFICATIONS: No suspicious calcifications. SOFT TISSUES: No gross mass or suggestion of organomegaly. HARDWARE: None in the abdomen. BONES: No acute fracture. No worrisome bone lesions. OTHER: No other significant finding. IMPRESSION: Nonspecific bowel gas pattern. No dilated loops identified. Moderate constipation. TECHNICAL DOCUMENTATION: JOB ID: [id number] [id number] 2010 [employer]- All Rights Reserved Reading location - IP/workstation name: [email or web address]
[2019-11-19] MEDS: DOCUSATE SODIUM 100 MG CAPSULE PO SCH (22:42)
[2019-11-20] MEDS: METOPROLOL SUCCINATE 25 MG TAB.SR.24H PO SCH ×2 (10:29→18:39)
[2019-11-20] MEDS: LISINOPRIL 5 MG TABLET PO SCH (10:29)
[2019-11-20] MEDS: ISOSORBIDE MONONITRATE 20 MG TABLET PO SCH ×3 (10:29→18:39)
[2019-11-20] MEDS: BUSPIRONE HCL 10 MG TABLET PO SCH ×2 (10:30→18:39)
[2019-11-20] MEDS: GLIMEPIRIDE 4 MG TABLET PO SCH ×2 (10:30→18:40)
[2019-11-20] MEDS: DOCUSATE SODIUM 100 MG CAPSULE PO SCH ×2 (10:31→18:38)
[2019-11-20] MEDS: DIVALPROEX SODIUM 250 MG TABLET.DR PO SCH ×2 (10:31→18:40)
[2019-11-20] MEDS: RISPERIDONE 0.25 MG TABLET PO SCH ×2 (10:31→18:38)
--- NOTE | 2019-11-20 10:59 | ER Document Report ---
Doctor's Note Notes: 11/20/19 10:57 Patient seen and examined, chart reviewed. In short this is a 79-year-old gentleman with a history of dementia, here for possible placement. Patient denies any complaints, other than stating that his breakfast was "terrible." He did eat some today, which is different from last night. He was given an enema yesterday, was unable to retain more than 300 cc, and did not have a bowel movement. He has not yet had one. He denies any abdominal pain. Vital signs reviewed. On exam the patient is slightly more confused today. He looks at his yellow socks, calls them corn. But he is pleasant, cooperative, makes good eye contact with examiner. Head is normocephalic and atraumatic, pupils are equal round, reactive to light. Heart regular rate and rhythm, lungs are clear to auscultation bilaterally. Abdomen soft, nontender, normoactive bowel sounds. Assessment, this is a patient with advanced dementia, waiting on placement. Milk of magnesia is ordered to see if we can help with his bowel movements. He could not retain an enema, he is already been started on twice daily Colace. Other than that, patient is eating, vital signs are stable. Awaiting news from social work/case management.
[2019-11-21] MEDS: METOPROLOL SUCCINATE 25 MG TAB.SR.24H PO SCH ×2 (12:06→18:14)
[2019-11-21] MEDS: LISINOPRIL 5 MG TABLET PO SCH (12:06)
[2019-11-21] MEDS: DOCUSATE SODIUM 100 MG CAPSULE PO SCH ×2 (12:07→18:13)
[2019-11-21] MEDS: GLIMEPIRIDE 4 MG TABLET PO SCH ×2 (12:07→18:12)
[2019-11-21] MEDS: DIVALPROEX SODIUM 250 MG TABLET.DR PO SCH ×2 (12:07→18:14)
[2019-11-21] MEDS: BUSPIRONE HCL 10 MG TABLET PO SCH ×2 (12:08→18:14)
[2019-11-21] MEDS: ISOSORBIDE MONONITRATE 20 MG TABLET PO SCH ×3 (12:08→18:15)
[2019-11-21] MEDS: RISPERIDONE 0.25 MG TABLET PO SCH ×2 (12:08→18:15)
--- NOTE | 2019-11-21 12:53 | RADIOLOGY REPORT (SQ) ---
EXAM DESCRIPTION: CHEST SINGLE VIEW IMAGES COMPLETED DATE/TIME: 11/21/2019 12:33 pm REASON FOR STUDY: tachycardia COMPARISON: 11/17/2019 EXAM PARAMETERS: NUMBER OF VIEWS: One view. TECHNIQUE: Single frontal radiographic view of the chest acquired. RADIATION DOSE: NA LIMITATIONS: None. FINDINGS: LUNGS AND PLEURA: Mild left basilar opacities with obscuration of the left hemidiaphragm. No pleural effusion or pneumothorax. MEDIASTINUM AND HILAR STRUCTURES: No masses. Contour normal. HEART AND VASCULAR STRUCTURES: Heart size. Vascular calcifications. BONES: No acute findings. HARDWARE: None in the chest. OTHER: No other significant finding. IMPRESSION: Mild left basilar opacities which may represent atelectasis or developing airspace disea se. TECHNICAL DOCUMENTATION: JOB ID: [id number] 2010 [employer]- All Rights Reserved Reading location - IP/workstation name: [email or web address]
[2019-11-21 12:58] LABS: ABSOLUTE EOSINOPHILS # (AUTO) 0.1 10^3/uL (0.0-0.6); ABSOLUTE LYMPHOCYTES (AUTO) 2.2 10^3/uL (0.5-4.7); ABSOLUTE MONOCYTES (AUTO) 0.6 10^3/uL (0.1-1.4); ABSOLUTE NEUT (AUTO) 4.8 10^3/uL (1.7-8.2); BASOPHILS % (AUTO) 0.2 % (0-2); EOSINOPHILS % (AUTO) 0.7 % (0-6); HEMATOCRIT 40.1 % (37.9-51.0); HEMOGLOBIN 13.2 g/dL (13.5-17.0); LYMPHOCYTES % (AUTO) 28.5 % (13-45); MEAN CORPUSCULAR HEMOGLOBIN 30.4 pg (27.0-33.4); MEAN CORPUSCULAR VOLUME 92 fl (80-97); PLATELET COUNT 201 10^3/uL (150-450); RED BLOOD COUNT 4.36 10^6/uL (4.35-5.55); RED CELL DISTRIBUTION WIDTH 13.9 % (11.5-14.0); SEGMENTED NEUTROPHILS % (AUTO) 62.6 % (42-78); TOTAL CELLS COUNTED % (AUTO) 100 %; WHITE BLOOD COUNT 7.6 10^3/uL (4.0-10.5)
[2019-11-21 13:20] LABS: ALKALINE PHOSPHATASE 49 U/L (38-126); ANION GAP 8 (5-19); ASPARTATE AMINO TRANSFERASE 25 U/L (17-59); BILIRUBIN,DIRECT 0.1 mg/dL (0.0-0.4); BILIRUBIN,TOTAL 1.1 mg/dL (0.2-1.3); BLOOD UREA NITROGEN 40 mg/dL (7-20); CALCIUM 8.8 mg/dL (8.4-10.2); CARBON DIOXIDE 29 mmol/L (22-30); CHLORIDE 103 mmol/L (98-107); GLUCOSE 243 mg/dL (75-110); POTASSIUM 4.3 mmol/L (3.6-5.0); TOTAL PROTEIN 7.2 g/dL (6.3-8.2)
--- NOTE | 2019-11-21 13:28 | ER Document Report ---
Doctor's Note Notes: 11/21/19 13:25 Patient was checked for tachycardia as per nursing staff this morning. Patient was eating dinner upon my exam and had no complaints. Patient also had a repeat CBC Chem-7 and troponin ordered today. He was pleasantly confused. Vital signs within normal limits. Physical exam unchanged compared to Dr. Christensen and Abhinav GEORGE notes 11/21/19 13:27
--- NOTE | 2019-11-21 19:31 | EKG REPORT ---
SEVERITY:- ABNORMAL ECG - ATRIAL FIBRILLATION, V-RATE 56-82 VENTRICULAR PREMATURE COMPLEX RBBB AND LPFB INFERIOR INFARCT, AGE INDETERMINATE : Confirmed by: Janis Mccallum MD 21-Nov-2019 19:30:38
[2019-11-22] MEDS: RISPERIDONE 0.25 MG TABLET PO SCH ×2 (10:50→17:54)
--- NOTE | 2019-11-22 10:51 | ER Document Report ---
Doctor's Note Notes: 11/22/19 10:49 SOCIAL HOLD NOTE Elderly man with dementia awaiting definitive placement. Nursing staff reports no acute issues and patient has no specific complaints this time. Afebrile with a pulse 53 respirations 18 and blood pressure 107/87. O2 saturation 99% on room air. Patient is pleasantly demented and confabulating as per baseline. His chest is clear. His cardiac rhythm is regular. 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 Advanced degenerative changes of inner phalangeal joints of both hands. 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 Discharge planning team continues to address placement issues.
[2019-11-22] MEDS: DIVALPROEX SODIUM 250 MG TABLET.DR PO SCH ×2 (10:56→17:54)
[2019-11-22] MEDS: ISOSORBIDE MONONITRATE 20 MG TABLET PO SCH ×3 (10:56→17:53)
[2019-11-22] MEDS: LISINOPRIL 5 MG TABLET PO SCH (10:56)
[2019-11-22] MEDS: BUSPIRONE HCL 10 MG TABLET PO SCH ×2 (10:57→17:53)
[2019-11-22] MEDS: DOCUSATE SODIUM 100 MG CAPSULE PO SCH ×2 (10:57→17:54)
[2019-11-22] MEDS: METOPROLOL SUCCINATE 25 MG TAB.SR.24H PO SCH ×2 (10:57→17:54)
[2019-11-22] MEDS: GLIMEPIRIDE 4 MG TABLET PO SCH ×2 (10:58→17:54)
[2019-11-23] MEDS: METOPROLOL SUCCINATE 25 MG TAB.SR.24H PO SCH ×2 (09:13→19:28)
[2019-11-23] MEDS: BUSPIRONE HCL 10 MG TABLET PO SCH ×2 (09:13→17:53)
[2019-11-23] MEDS: DIVALPROEX SODIUM 250 MG TABLET.DR PO SCH ×2 (09:13→17:53)
[2019-11-23] MEDS: DOCUSATE SODIUM 100 MG CAPSULE PO SCH ×2 (09:14→17:53)
[2019-11-23] MEDS: GLIMEPIRIDE 4 MG TABLET PO SCH ×2 (09:14→19:19)
[2019-11-23] MEDS: RISPERIDONE 0.25 MG TABLET PO SCH ×2 (09:14→17:53)
[2019-11-23] MEDS: LISINOPRIL 5 MG TABLET PO SCH (09:14)
[2019-11-23] MEDS: ISOSORBIDE MONONITRATE 20 MG TABLET PO SCH ×3 (09:14→19:19)
--- NOTE | 2019-11-23 13:40 | ER Document Report ---
Doctor's Note Notes: 11/23/19 13:39 SOCIAL HOLD NOTE Elderly man with dementia continues to wait definitive placement. Nursing staff reports no acute issues and patient has no new complaints this time. Afebrile with a pulse 58 respirations 18 and blood pressure 110/87. O2 saturation 99% on room air. Patient is pleasantly demented and confabulating as per baseline. His chest is clear. His cardiac rhythm is regular. 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 Advanced degenerative changes of inner phalangeal joints of both hands. 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 Discharge planning team continues to address placement issues.
[2019-11-24] MEDS: ISOSORBIDE MONONITRATE 20 MG TABLET PO SCH ×3 (11:22→18:54)
[2019-11-24] MEDS: DIVALPROEX SODIUM 250 MG TABLET.DR PO SCH ×2 (11:23→18:51)
[2019-11-24] MEDS: GLIMEPIRIDE 4 MG TABLET PO SCH ×2 (11:23→18:52)
[2019-11-24] MEDS: BUSPIRONE HCL 10 MG TABLET PO SCH ×2 (11:24→18:52)
[2019-11-24] MEDS: DOCUSATE SODIUM 100 MG CAPSULE PO SCH ×2 (11:25→18:51)
[2019-11-24] MEDS: LISINOPRIL 5 MG TABLET PO SCH (11:25)
[2019-11-24] MEDS: METOPROLOL SUCCINATE 25 MG TAB.SR.24H PO SCH ×2 (11:25→18:53)
[2019-11-24] MEDS: RISPERIDONE 0.25 MG TABLET PO SCH ×2 (11:26→18:53)
[2019-11-24] MEDS: CLOTRIMAZOLE/BETAMETHASONE DIP CREAM 15 GM TOP SCH (18:52)
--- NOTE | 2019-11-24 21:26 | ER Document Report ---
Doctor's Note Notes: 11/24/19 21:25 Called to room by nursing as the patient was complaining of pain. He was grimacing, she became concerned. I went into evaluate the patient. He is unable to really articulate to me where he is having pain. He did finally agree that he was having back pain, but could not elaborate for me, then became more acutely confused. I did note that the patient has had some issues with constipation, per nurse she is unaware of any large results in a bowel movement. On exam he is grimacing and agitated, but cooperative with examiner. Heart is regular rate and rhythm, lungs are clear to auscultation bilaterally. Abdomen reveals global tenderness with some voluntary guarding. I ordered Tylenol. KUB and chest x- Ray ordered, we will follow-up. 11/25/19 05:54 I had gone back into evaluate patient earlier. The x-ray showed a significant amount of gas. Patient had been given Tylenol, however ordered milk of magnesia because he continues to have some constipation. He did have a large bowel movement earlier in the week. I went back into evaluate the patient and his abdomen is nontender, he is actually resting comfortably.
--- NOTE | 2019-11-24 22:30 | RADIOLOGY REPORT (SQ) ---
XR CHEST 1 VIEW HISTORY: Chest pain. COMPARISON: 11/21/2019 FINDINGS: The heart size is mildly enlarged. There is no pulmonary vascular congestion. No consolidation, pleural effusion, or pneumothorax is seen. No acute bony findings are seen. IMPRESSION: No evidence of acute cardiopulmonary disease.
[~2019-11-24 22:31] MED LIST: ACETAMINOPHEN 325 MG TABLET PO ONE; ACETAMINOPHEN 325 MG TABLET PO PRN; BUSPIRONE HCL 10 MG TABLET PO ONE; DIVALPROEX SODIUM 250 MG TABLET.DR PO ONE; DOCUSATE SODIUM 100 MG CAPSULE PO ONE; GLIMEPIRIDE 4 MG TABLET PO ONE; HALOPERIDOL LACTATE INJ 5 MG/1 ML VIAL IM ONE; ISOSORBIDE MONONITRATE 20 MG TABLET PO ONE; LACTULOSE SYRUP 20 GM/30 ML UDCUP PO ONE; LIDOCAINE 2% URO-JET 5 ML KIT MM ONE; MAGNESIUM HYDROXIDE SUSP 30 ML UDCUP PO ONE; METOPROLOL SUCCINATE 25 MG TAB.SR.24H PO ONE; RISPERIDONE 0.25 MG TABLET PO ONE; SIMETHICONE 80 MG TAB.CHEW PO ONE; TUBERCULIN,PURIF.PROT.DERIV. 5 TU/0.1 ML TEST 1 ML VIAL ID ONE
--- NOTE | 2019-11-24 22:33 | RADIOLOGY REPORT (SQ) ---
EXAM DESCRIPTION: [facility]: XR ABDOMEN 1 VIEW (KUB) CLINICAL HISTORY: 79 years Male; pain, constipation; COMPARISON: 11/19/2019 FINDINGS: There is moderate proximal colonic fecal retention. Moderate gaseous distention of the sigmoid colon. No pneumatosis. Mild gaseous distention of the stomach. No small bowel distention. No suspicious calcifications. Chronic degenerative changes are again noted in the lumbar spine. IMPRESSION: 1. Proximal colonic fecal retention as well as gaseous distention of the colon. 2. No small bowel distention.
[2019-11-25] MEDS: ISOSORBIDE MONONITRATE 20 MG TABLET PO SCH ×3 (09:56→18:14)
[2019-11-25] MEDS: DIVALPROEX SODIUM 250 MG TABLET.DR PO SCH ×2 (09:57→18:15)
[2019-11-25] MEDS: DOCUSATE SODIUM 100 MG CAPSULE PO SCH ×2 (09:57→18:13)
[2019-11-25] MEDS: BUSPIRONE HCL 10 MG TABLET PO SCH ×2 (09:57→18:14)
[2019-11-25] MEDS: RISPERIDONE 0.25 MG TABLET PO SCH ×2 (09:58→18:14)
[2019-11-25] MEDS: GLIMEPIRIDE 4 MG TABLET PO SCH ×2 (09:58→18:14)
[2019-11-25] MEDS: METOPROLOL SUCCINATE 25 MG TAB.SR.24H PO SCH ×2 (09:58→18:15)
[2019-11-25] MEDS: LISINOPRIL 5 MG TABLET PO SCH (09:58)
[2019-11-25] MEDS: CLOTRIMAZOLE/BETAMETHASONE DIP CREAM 15 GM TOP SCH ×2 (09:59→18:15)
[2019-11-25] MEDS ORDERED: NA PHOS,M-B/NA PHOS,DI-BA (ADULT) 133 ML ENEMA PR ONE (19:46)
--- NOTE | 2019-11-25 19:49 | ER Document Report ---
Doctor's Note Notes: 11/25/19 19:47 SOCIAL HOLD NOTE Mr. Daniel remains pleasantly demented. He has been a little bit argumentative today according to not had a bowel movement in several days. Nursing staff. Looking back through his charting it looks like he has not had a bowel movement in several days. We going to give him a fleets enema and he is being manually disimpacted.
[2019-11-26] MEDS: BUSPIRONE HCL 10 MG TABLET PO SCH ×2 (09:27→18:40)
[2019-11-26] MEDS: ISOSORBIDE MONONITRATE 20 MG TABLET PO SCH ×3 (09:27→18:41)
[2019-11-26] MEDS: RISPERIDONE 0.25 MG TABLET PO SCH ×2 (09:28→18:40)
[2019-11-26] MEDS: GLIMEPIRIDE 4 MG TABLET PO SCH ×2 (09:28→18:40)
[2019-11-26] MEDS: DOCUSATE SODIUM 100 MG CAPSULE PO SCH ×3 (09:29→18:40)
[2019-11-26] MEDS: METOPROLOL SUCCINATE 25 MG TAB.SR.24H PO SCH ×2 (09:29→18:40)
[2019-11-26] MEDS: DIVALPROEX SODIUM 250 MG TABLET.DR PO SCH ×2 (09:29→18:41)
[2019-11-26] MEDS: LISINOPRIL 5 MG TABLET PO SCH (09:59)
[2019-11-26] MEDS: CLOTRIMAZOLE/BETAMETHASONE DIP CREAM 15 GM TOP SCH ×2 (11:30→18:41)
--- NOTE | 2019-11-26 17:49 | ER Document Report ---
Doctor's Note Notes: 11/26/19 17:49 Patient has been seen and reevaluated. Patient is calm and cooperative. Awaiting for placement. Patient was supposedly sent here for placement by the family and primary care physician. Repeat creatinine and troponin as recorded few days ago. Patient has no complaints of chest pain. He has been calm and interactive. Heart rate is currently in the 70s.
[2019-11-27] MEDS: DIVALPROEX SODIUM 250 MG TABLET.DR PO SCH ×2 (10:51→17:53)
[2019-11-27] MEDS: LISINOPRIL 5 MG TABLET PO SCH (10:51)
[2019-11-27] MEDS: METOPROLOL SUCCINATE 25 MG TAB.SR.24H PO SCH ×2 (10:51→17:52)
[2019-11-27] MEDS: BUSPIRONE HCL 10 MG TABLET PO SCH ×2 (10:52→17:53)
[2019-11-27] MEDS: GLIMEPIRIDE 4 MG TABLET PO SCH ×2 (10:52→17:52)
[2019-11-27] MEDS: RISPERIDONE 0.25 MG TABLET PO SCH ×2 (10:52→17:56)
[2019-11-27] MEDS: DOCUSATE SODIUM 100 MG CAPSULE PO SCH ×2 (10:52→17:52)
[2019-11-27] MEDS: CLOTRIMAZOLE/BETAMETHASONE DIP CREAM 15 GM TOP SCH ×2 (10:54→17:54)
[2019-11-27] MEDS: ISOSORBIDE MONONITRATE 20 MG TABLET PO SCH ×3 (10:59→17:53)
[2019-11-27] MEDS ORDERED: ASPIRIN 325 MG TABLET PO ONE (14:00)
--- NOTE | 2019-11-27 14:02 | ER Document Report ---
Doctor's Note Notes: 11/27/19 14:01 Patient complained to the nurse of some chest discomfort. Repeat EKG shows persistent wide-complex rhythm that is irregular. I have looked over the patient's previous EKG showing no obvious atrial fibrillation. He does have a junctional escape rhythm on a previous EKG. Patient on repeat exam is having no chest pain. I have provided aspirin. I did speak directly to the hand lacer. He believes given atrial fibrillation that appears to be new onset with some chest discomfort the patient may need further evaluation. Patient has a history of coronary artery disease. Initial troponin is unremarkable. I did speak to the hospitalist who will come and assess the patient.
[2019-11-27] MEDS ORDERED: IPRATROPIUM/ALBUTEROL 0.5-2.5 MG/3 ML AMPUL NEB PRN (15:45)
[2019-11-27] MEDS ORDERED: NITROGLYCERIN 0.4 MG/TAB 25 TAB/BOTTLE SL PRN (15:55)
[2019-11-27] MEDS ORDERED: DEXTROSE 50%-WATER 25 GM/50 ML DISP.SYRIN IV PRN ×2 (15:56)
[2019-11-27] MEDS ORDERED: DEXTROSE 40% GEL 15 GM TUBE PO PRN ×2 (15:56)
[2019-11-27] MEDS ORDERED: GLUCAGON,HUMAN RECOMB 1 MG INJ IM PRN (15:56)
--- NOTE | 2019-11-27 16:05 | PDOC H&P ---
History of Present Illness Patient complains of: A. fib new onset, chest pain History of Present Illness: DORA OROZCO is a 79 year old male who has been in the ER for the past 10 days awaiting placement at group home facility as he was referred by his PCP because family could not take care of him at home anymore. He was essentially a social hold in the ER. unit control worker working on placement. Had been seen by psychiatry due to agitation and have dropped their recommendations. Apparently this morning, patient started complaining of substernal chest pain. Patient is notably a very poor historian and very much most of my history was obtained from the ER provider as I have not been able to contact family as well despite several calls. ER provider Dr. Villafana informs me that he was reviewing his chart and noted that he has been in A. fib since he came in. He informs me that patients A. fib is new onset during this encounter/ER visit. He states he spoke to Dr. Harry who recommended work-up for A. fib and chest pain. My evaluation, patient states he has no chest pain. He does not recall having it this morning he was noted noted by nursing staff as well but he had chest pain this morning. He denies any shortness of breath. He seems, the moment. Cannot verify any history of A. fib. Past Medical History Cardiac Medical History: Reports: Myocardial Infarction, Hyperlipidema, Hypertension - WELL CONTROLLED Pulmonary Medical History: Denies: Asthma Neurological Medical History: Denies: Seizures Endocrine Medical History: Reports: Diabetes Mellitus Type 2 GI Medical History: Denies: Hepatitis, Hiatal Hernia Hematology: Denies: Anemia, Sickle Cell Disease Past Surgical History Past Surgical History: Denies: Pacemaker Social History Lives with: Family Smoking Status: Unknown if Ever Smoked Frequency of Alcohol Use: Rare Hx Recreational Drug Use: No Family History Family History: Other - Cannot obtain due to mental status Parental Family History Reviewed: No Children Family History Reviewed: Unknown Sibling(s) Family History Reviewed.: Unknown Medication/Allergy Home Medications: Fluoxetine HCl 20 mg PO DAILY 11/18/19 Glimepiride [Amaryl 4 mg Tablet] 4 mg PO BID 11/18/19 Isosorbide Mononitrate [Ismo 20 mg Tablet] 20 mg PO TID 11/18/19 Lisinopril [Prinivil 5 mg Tablet] 5 mg PO DAILY 11/18/19 Metoprolol Tartrate [Lopressor 25 mg Tablet] 25 mg PO Q12 11/18/19 Pravastatin Sodium 40 mg PO DAILY 11/18/19 Quetiapine Fumarate [Quetiapine Fumarate ER] 50 mg PO QHS 11/18/19 Allergies/Adverse Reactions: No Known Allergies Allergy (Verified 06/30/18 11:52) Review of Systems ROS unobtainable: Due to mental status Physical Exam Vital Signs: Temp Pulse Resp BP Pulse Ox 97.3 F 88 18 126/73 H 100 11/27/19 11:53 11/27/19 11:53 11/27/19 11:53 11/27/19 11:53 11/27/19 11:53 Intake & Output 11/26/19 11/27/19 11/28/19 06:59 06:59 06:59 Intake Total 480 Balance 480 General appearance: PRESENT: no acute distress, cooperative Neck exam: ABSENT: JVD Respiratory exam: PRESENT: clear to auscultation noé, unlabored. ABSENT: tachypnea, wheezes Cardiovascular exam: PRESENT: irregular rhythm, +S1, +S2. ABSENT: tachycardia GI/Abdominal exam: PRESENT: soft. ABSENT: rebound, rigid, tenderness Extremities exam: ABSENT: pedal edema Neurological exam: PRESENT: alert, awake, oriented to person, other - Able to carry on conversation extremely poor memory with very poor recollection of recent events. Cannot corroborate much of anything to me.. ABSENT: oriented to place, oriented to time, oriented to situation Psychiatric exam: ABSENT: agitated, anxious Focused psych exam: PRESENT: other. ABSENT: pressured speech Skin exam: ABSENT: rash Results Laboratory Results: 11/21/19 12:35 11/21/19 12:35 11/18/19 11/21/19 11/27/19 00:23 12:35 12:20 Troponin I 0.015 0.013 < 0.012 Impressions: Head CT 11/17/19 23:04 IMPRESSION: 1. No acute intracranial findings. 2. Chronic ischemic changes as on prior exam. Chest X-Ray 11/24/19 21:25 IMPRESSION: No evidence of acute cardiopulmonary disease. KUB X-Ray 11/24/19 21:25 IMPRESSION: 1. Proximal colonic fecal retention as well as gaseous distention of the colon. 2. No small bowel distention. Assessment and Plan - Diagnosis (1) Atrial fibrillation, persistent Is this a current diagnosis for this admission?: Yes (2) Chest pain Is this a current diagnosis for this admission?: Yes (3) Aggressive behavior Is this a current diagnosis for this admission?: Yes (4) CAD (coronary artery disease) Is this a current diagnosis for this admission?: Yes (5) Dementia Qualifiers: Dementia type: unspecified type Dementia behavioral disturbance: with behavioral disturbance Qualified Code(s): F03.91 - Unspecified dementia with behavioral disturbance Is this a current diagnosis for this admission?: Yes (6) Diabetes Qualifiers: Diabetes mellitus type: type 2 Diabetes mellitus truck terminal manager insulin use: without truck terminal manager use Diabetes mellitus complication status: without complication Qualified Code(s): E11.9 - Type 2 diabetes mellitus without complications Is this a current diagnosis for this admission?: Yes - Plan Summary Summary: Consults cardiology. Was informed that A. fib is new onset by ER provider. However I have been unable to confirm this as patient is a very poor historian and I have tried several times to get hold of family to no avail Chest pain is currently resolved. Troponin is negative and EKG seems unchanged since initial presentation. Veneer Drier Feeder recommending echocardiogram. Nitroglycerin as needed Continue anti-psych meds Continue antidiabetic medications SSI and Accu-Cheks - Time Time Spent with patient: 25-34 minutes Anticipated Discharge Disposition: Shelter Facility Anticipated Discharge Timeframe: when bed available
[2019-11-27] MEDS: INSULIN LISPRO 100 UNIT/ML 3 ML VIAL SUBCUT SCH ×2 (17:03→21:28)
[2019-11-27] MEDS: ENOXAPARIN SODIUM INJ 40 MG/0.4 ML DISP.SYRIN SUBCUT SCH (17:21)
--- NOTE | 2019-11-27 20:51 | EKG REPORT ---
SEVERITY:- DEFECTIVE ECG - RIGHT BUNDLE BRANCH BLOCK BASELINE ARTIFACT,CANNOT INTERPRET.REPEAT EKG : Confirmed by: Janis Mccallum MD 27-Nov-2019 20:50:48
--- NOTE | 2019-11-28 07:20 | EKG REPORT ---
SEVERITY:- ABNORMAL ECG - ATRIAL FIBRILLATION, V-RATE 56-86 MULTIPLE VENTRICULAR PREMATURE COMPLEXES RBBB AND LPFB INFERIOR INFARCT, AGE INDETERMINATE : Confirmed by: Eric Graf MD 28-Nov-2019 07:19:56
[2019-11-28 08:27] LABS: HEMATOCRIT 38.6 % (37.9-51.0); HEMOGLOBIN 12.9 g/dL (13.5-17.0); MEAN CORPUSCULAR HEMOGLOBIN 30.9 pg (27.0-33.4); MEAN CORPUSCULAR HGB CONC 33.5 g/dL (32.0-36.0); MEAN CORPUSCULAR VOLUME 92 fl (80-97); PLATELET COUNT 205 10^3/uL (150-450); RED BLOOD COUNT 4.19 10^6/uL (4.35-5.55); WHITE BLOOD COUNT 7.2 10^3/uL (4.0-10.5)
[2019-11-28 08:52] LABS: ANION GAP 10 (5-19); BLOOD UREA NITROGEN 33 mg/dL (7-20); CALCIUM 9.3 mg/dL (8.4-10.2); CARBON DIOXIDE 27 mmol/L (22-30); CHLORIDE 104 mmol/L (98-107); GLUCOSE 176 mg/dL (75-110); POTASSIUM 4.4 mmol/L (3.6-5.0)
--- NOTE | 2019-11-28 12:22 | EKG REPORT ---
SEVERITY:- DEFECTIVE ECG - IRREGULAR RHYTHM WITH PVC RIGHT BUNDLE BRANCH BLOCK : Confirmed by: Eric Graf MD 28-Nov-2019 12:21:51
--- NOTE | 2019-11-28 12:39 | PDOC CONSULTATION ---
Consultation Consult Date: 11/28/19 Attending physician:: ELINA MORA Provider Consulted: NAPOLEON CRUZ Consult reason:: CP and A-fib History of Present Illness Admission Date/PCP: 11/27/19 15:46 History of Present Illness: DORA OROZCO is a 79 year old male with dementia and presumed history of hypertension, DM, HLD and CAD (as he is taking medications for all these conditions) who is consulted to our service for evaluation of chest pain and atrial fibrillation of unknown duration. The current history is obtained from review of his medical record as he is unable to answer any questions. The patient had been in the ED for at least 10 days when he was brought by EMS at the request of his family because they were not able to care for the patient any longer due to his advanced dementia and aggressiveness. He remained in the ED for 10 days awaiting placement but yesterday complained of chest pain. Unfortunately, the details of his pain are unknown as the patient cannot be specific or even remember his chest pain secondary to his dementia. Of note, he was also noted to be in A-fib with a controlled rate with a RBBB. The duration of this finding is also unknown. His telemetry this morning shows well controlled a-fib. Physical exam on 11/28/19: GA: sleeping and difficult to arise. Falls right back to sleep but shakes his head "no" when asked if he has any chest pain or shortness of breath. He appears comfortable. NECK: no JVD. HEART: irregularly irregular rhythm, no murmurs, no gallops, no rubs. LE: no edema or cyanosis. Past Medical History Cardiac Medical History: Reports: Myocardial Infarction, Hyperlipidema, Hypertension - WELL CONTROLLED Pulmonary Medical History: Denies: Asthma Neurological Medical History: Denies: Seizures Endocrine Medical History: Reports: Diabetes Mellitus Type 2 GI Medical History: Denies: Hepatitis, Hiatal Hernia Psychiatric Medical History: Denies: Depression Hematology: Denies: Anemia, Sickle Cell Disease Past Surgical History Past Surgical History: Denies: Pacemaker Social History Lives with: Family Smoking Status: Unknown if Ever Smoked Frequency of Alcohol Use: Rare Hx Recreational Drug Use: No Drugs: None Hx Prescription Drug Abuse: No Family History Family History: Other - Cannot obtain due to mental status Parental Family History Reviewed: No Children Family History Reviewed: No Sibling(s) Family History Reviewed.: No Medication/Allergy Home Medications: Fluoxetine HCl 20 mg PO DAILY 11/18/19 Glimepiride [Amaryl 4 mg Tablet] 4 mg PO BID 11/18/19 Isosorbide Mononitrate [Ismo 20 mg Tablet] 20 mg PO TID 11/18/19 Lisinopril [Prinivil 5 mg Tablet] 5 mg PO DAILY 11/18/19 Metoprolol Tartrate [Lopressor 25 mg Tablet] 25 mg PO Q12 11/18/19 Pravastatin Sodium 40 mg PO DAILY 11/18/19 Quetiapine Fumarate [Quetiapine Fumarate ER] 50 mg PO QHS 11/18/19 Allergies/Adverse Reactions: No Known Allergies Allergy (Verified 06/30/18 11:52) Physical Exam Vital Signs: Temp Pulse Resp BP Pulse Ox 97.9 F 68 18 98/57 L 96 11/27/19 23:45 11/28/19 02:00 11/27/19 23:45 11/27/19 23:45 11/27/19 23:45 Intake & Output 11/26/19 11/27/19 11/28/19 06:59 06:59 06:59 Intake Total 480 Balance 480 Weight 62 kg Results Laboratory Results: 11/21/19 12:35 11/21/19 12:35 11/18/19 11/21/19 11/27/19 00:23 12:35 12:20 Troponin I 0.015 0.013 < 0.012 Impressions: Head CT 11/17/19 23:04 IMPRESSION: 1. No acute intracranial findings. 2. Chronic ischemic changes as on prior exam. Chest X-Ray 11/24/19 21:25 IMPRESSION: No evidence of acute cardiopulmonary disease. KUB X-Ray 11/24/19 21:25 IMPRESSION: 1. Proximal colonic fecal retention as well as gaseous distention of the colon. 2. No small bowel distention. 11/21/19 12:35 11/21/19 12:35 MCV 92 fl (80-97) 11/21/19 12:35 MCH 30.4 pg (27.0-33.4) 11/21/19 12:35 MCHC 33.0 g/dL (32.0-36.0) 11/21/19 12:35 RDW 13.9 % (11.5-14.0) 11/21/19 12:35 Seg Neutrophils % 62.6 % (42-78) 11/21/19 12:35 Chloride 103 mmol/L (98-107) 11/21/19 12:35 Carbon Dioxide 29 mmol/L (22-30) 11/21/19 12:35 Anion Gap 8 (5-19) 11/21/19 12:35 Est GFR ( Amer) > 60 (>60) 11/21/19 12:35 Glucose 243 mg/dL (75-110) H 11/21/19 12:35 Calcium 8.8 mg/dL (8.4-10.2) 11/21/19 12:35 Total Bilirubin 1.1 mg/dL (0.2-1.3) 11/21/19 12:35 AST 25 U/L (17-59) 11/21/19 12:35 Alkaline Phosphatase 49 U/L (38-126) 11/21/19 12:35 Total Protein 7.2 g/dL (6.3-8.2) 11/21/19 12:35 Albumin 4.0 g/dL (3.5-5.0) 11/21/19 12:35 Urine Color YELLOW 11/18/19 03:50 Urine Appearance CLEAR 11/18/19 03:50 Urine pH 6.0 (5.0-9.0) 11/18/19 03:50 Ur Specific Totz 1.015 11/18/19 03:50 Urine Protein NEGATIVE mg/dL (NEGATIVE) 11/18/19 03:50 Urine Glucose (UA) NEGATIVE mg/dL (NEGATIVE) 11/18/19 03:50 Urine Ketones TRACE mg/dL (NEGATIVE) H 11/18/19 03:50 Urine Blood NEGATIVE (NEGATIVE) 11/18/19 03:50 Urine Nitrite NEGATIVE (NEGATIVE) 11/18/19 03:50 Ur Leukocyte Esterase NEGATIVE (NEGATIVE) 11/18/19 03:50 Urine WBC (Auto) 0 /HPF 11/18/19 03:50 Urine RBC (Auto) 0 /HPF 11/18/19 03:50 11/18/19 11/21/19 11/27/19 00:23 12:35 12:20 Troponin I 0.015 0.013 < 0.012 Current Medication List Generic Name Dose Route Start Last Admin Trade Name Freq PRN Reason Stop Dose Admin Acetaminophen 650 mg 11/24/19 21:24 11/25/19 18:28 Tylenol 325 Mg Tablet PO 12/24/19 21:23 650 mg Q4HP PRN Administration FOR PAIN SCALE 3-5 Albuterol/Ipratropium 3 ml 11/27/19 15:45 Duoneb 3 Ml Ampul NEB 12/27/19 15:44 [id number] PRN SHORTNESS OF BREATH Betamethasone/Clotrimazole 1 applic 11/24/19 18:00 11/27/19 17:54 Lotrisone Cream 15 Gm TOP 12/24/19 17:59 1 applic BID MATTY Administration Buspirone HCl 5 mg 11/18/19 18:00 11/27/19 17:53 Buspar 10 Mg Tablet PO 12/18/19 17:59 5 mg BID MATTY Administration Dextrose 25 gm 11/27/19 15:56 Dextrose Inj 50% Syringe (25 Gm/50 Ml) IV 12/27/19 15:55 PRN PRN PER PROTOCOL Protocol Dextrose 12.5 gm 11/27/19 15:56 Dextrose Inj 50% Syringe (25 Gm/50 Ml) IV 12/27/19 15:55 PRN PRN FOR BG 50-69 IN ALERT PATIENT Protocol Divalproex Sodium 250 mg 11/18/19 18:00 11/27/19 17:53 Depakote Ec 250 Mg Tablet. PO 12/18/19 17:59 250 mg BID MATTY Administration Docusate Sodium 200 mg 11/19/19 18:00 11/27/19 17:52 Colace 100 Mg Capsule PO 12/19/19 17:59 200 mg BID MATTY Administration Enoxaparin Sodium 40 mg 11/27/19 17:00 11/27/19 17:21 Lovenox Inj 40 Mg/0.4 Ml Disp.Syrin SUBCUT 12/27/19 16:59 40 mg DAILY MATTY Administration Glimepiride 4 mg 11/18/19 10:00 11/27/19 17:52 Amaryl 4 Mg Tablet PO 12/18/19 09:59 4 mg BID MATTY Administration Glucagon 1 mg 11/27/19 15:56 Glucagen Inj 1 Mg Vial IM 12/27/19 15:55 PRN PRN Evaluate for BG < 70 Protocol Glucose 15 gm 11/27/19 15:56 Glutose 40% Gel 15 Gm Tube PO 12/27/19 15:55 PRN PRN FOR BG 50-69 IN ALERT PATIENT Protocol Glucose 30 gm 11/27/19 15:56 Glutose 40% Gel 15 Gm Tube PO 12/27/19 15:55 PRN PRN FOR BG < 50 IN ALERT PATIENT Protocol Insulin Human Lispro 0 - 12 unit 11/27/19 16:00 11/27/19 21:28 Humalog Insulin 100 Unit/1 Ml 3 Ml Vial SUBCUT 12/27/19 15:59 Not Given ACHS MATTY Protocol Isosorbide Mononitrate 20 mg 11/18/19 10:00 11/27/19 17:53 Ismo 20 Mg Tablet PO 12/18/19 09:59 20 mg TID MATTY Administration Lisinopril 5 mg 11/18/19 10:00 11/27/19 10:51 Prinivil 5 Mg Tablet PO 12/18/19 09:59 5 mg DAILY MATTY Administration Metoprolol Succinate 25 mg 11/18/19 10:00 11/27/19 17:52 Toprol Xl 25 Mg Tab.Sr PO 12/18/19 09:59 25 mg BID MATTY Administration Nitroglycerin 1 tab 11/27/19 15:55 Nitrostat 0.4 Mg (1/150 Gr) Tabs 25/Bottle SL 12/27/19 15:54 Q5MP PRN FOR CHEST PAIN Risperidone 0.25 mg 11/18/19 18:00 11/27/19 17:56 Risperdal 0.25 Mg Tablet PO 12/18/19 17:59 0.25 mg BID MATTY Administration Sodium Chloride 2.5 ml 11/27/19 22:00 11/28/19 05:08 Saline Flush 2.5 Ml Monoject Prefil Syrin IV 12/27/19 21:59 2.5 ml Q8 MATTY Administration Discontinued Medications Generic Name Dose Route Start Last Admin Trade Name Freq PRN Reason Stop Dose Admin Acetaminophen 650 mg 11/23/19 23:38 11/24/19 00:12 Tylenol 325 Mg Tablet PO 11/23/19 23:39 650 mg NOW ONE Administration Acetaminophen 650 mg 11/24/19 21:08 11/24/19 21:29 Tylenol 325 Mg Tablet PO 11/24/19 21:09 650 mg NOW ONE Administration Aspirin 325 mg 11/27/19 14:00 11/27/19 14:26 Aspirin 325 Mg Tablet PO 11/27/19 14:01 325 mg NOW ONE Administration Buspirone HCl 5 mg 11/19/19 22:00 11/19/19 22:23 Buspar 10 Mg Tablet PO 11/19/19 22:01 5 mg NOW ONE Administration Divalproex Sodium 250 mg 11/19/19 22:00 11/19/19 22:24 Depakote Ec 250 Mg Tablet.Dr PO 11/19/19 22:01 250 mg NOW ONE Administration Docusate Sodium 200 mg 11/19/19 22:00 11/19/19 22:24 Colace 100 Mg Capsule PO 11/19/19 22:01 200 mg NOW ONE Administration Glimepiride 4 mg 11/19/19 22:00 11/19/19 22:54 Amaryl 4 Mg Tablet PO 11/19/19 22:01 4 mg NOW ONE Administration Haloperidol 2.5 mg 11/17/19 23:06 11/17/19 23:37 Haldol 5 Mg Tablet PO 11/17/19 23:07 Not Given NOW ONE Haloperidol Lactate 3 mg 11/17/19 23:37 11/17/19 23:51 Haldol 5 Mg/Ml Inj 1 Ml Vial IM 11/17/19 23:38 3 mg NOW ONE Administration Isosorbide Mononitrate 20 mg 11/19/19 22:00 11/19/19 22:27 Ismo 20 Mg Tablet PO 11/19/19 22:01 Not Given NOW ONE Lactulose 20 gm 11/21/19 14:43 11/21/19 15:38 Cephulac Syrup 20 Gm/30 Ml Udcup PO 11/21/19 14:44 20 gm NOW ONE Administration Lidocaine HCl 5 ml 11/18/19 03:05 11/18/19 08:43 Xylocaine 2% Uro-Jet 5 Ml Kit MM 11/18/19 03:06 Not Given NOW ONE Magnesium Hydroxide 30 ml 11/20/19 10:57 11/20/19 11:45 Milk Of Magnesia 30 Ml Udcup PO 11/20/19 10:58 30 ml NOW ONE Administration Metoprolol Succinate 25 mg 11/19/19 22:00 11/19/19 22:54 Toprol Xl 25 Mg Tab.Sr PO 11/19/19 22:01 25 mg NOW ONE Administration Risperidone 0.25 mg 11/19/19 22:00 11/19/19 22:24 Risperdal 0.25 Mg Tablet PO 11/19/19 22:01 0.25 mg NOW ONE Administration Simethicone 160 mg 11/21/19 14:43 11/21/19 15:38 Mylicon 80 Mg Chewable Tablet PO 11/21/19 14:44 160 mg NOW ONE Administration Sodium Biphosphate/Sodium Phosphate 133 ml 11/25/19 19:46 11/25/19 20:27 Fleet Enema (Adult) 133 Ml [place] 11/25/19 19:47 133 ml NOW ONE Administration Tuberculin PPD 5 tu 11/19/19 10:50 11/19/19 11:00 Tubersol Inj 5 Tu/0.1 Ml 1 Ml Vial ID 11/19/19 10:51 5 tu NOW ONE Administration Assessment & Plan - Diagnosis (1) Chest pain Qualifiers: Chest pain type: unspecified Qualified Code(s): R07.9 - Chest pain, unspecified Is this a current diagnosis for this admission?: Yes Plan: 79 y/o male with history as above. Unfortunately his dementia is so severe he cannot provide any details of his chest pain however is not complaining of any active discomfort at this time. His troponin had been negative. Given his social status as well as his dementia, he is not a candidate for aggressive or invasive cardiac procedures. Recommendations: -Echocardiogram as requested. -Continue with current management. (2) CAD (coronary artery disease) Qualifiers: Coronary Disease-Associated Artery/Lesion type: [place] artery Associated angina: without angina Is this a current diagnosis for this admission?: Yes Plan: The patient presumably has CAD given the medications he is on. Unfortunately he cannot provide any details of his history due to his advanced dementia and there are no family members present to obtain further details. The patient is not a candidate for aggressive work up or invasive procedures therefore we will continue to manage him medically. He is currently chest pain-free. (3) Atrial fibrillation, persistent Is this a current diagnosis for this admission?: Yes Plan: The patient has atrial fibrillation of unknown duration. Luckily his rate is well controlled. His CHADS 2 VASC score is 5 therefore he requires anticoagulation however his dementia is a relative contraindication as he may develop a bleed and will not be cognizant enough as to recognize it and seek medical attention therefore we will hold off full anticoagulation for now and until I discuss this issue with his hospitalist and any available family members. (4) Diabetes Qualifiers: Diabetes mellitus type: type 2 Diabetes mellitus long term care phlebotomist insulin use: without long-term use Diabetes mellitus complication status: without complication Qualified Code(s): E11.9 - Type 2 diabetes mellitus without complications Is this a current diagnosis for this admission?: Yes Plan: Further management per hospitalist team.
[2019-11-28] MEDS: BUSPIRONE HCL 10 MG TABLET PO SCH ×2 (15:53→21:44)
[2019-11-28] MEDS: ENOXAPARIN SODIUM INJ 40 MG/0.4 ML DISP.SYRIN SUBCUT SCH (15:54)
--- NOTE | 2019-11-28 16:02 | PDOC PROGRESS REPORT ---
Subjective Progress Note for:: 11/28/19 Subjective:: Patient denies any chest pain this morning. Was quite drowsy on evaluation. Forgot about our conversation yesterday. Reason For Visit: AFIB,CHEST PAIN Physical Exam Vital Signs: Temp Pulse Resp BP Pulse Ox 98.1 F 73 16 98/47 L 96 11/28/19 04:58 11/28/19 04:58 11/28/19 04:58 11/28/19 04:58 11/28/19 04:58 Intake & Output 11/27/19 11/28/19 11/29/19 06:59 06:59 06:59 Weight 62 kg General appearance: PRESENT: no acute distress, cooperative Neck exam: ABSENT: JVD Respiratory exam: PRESENT: symmetrical, unlabored. ABSENT: accessory muscle use, retraction, tachypnea Cardiovascular exam: PRESENT: irregular rhythm, +S1, +S2. ABSENT: tachycardia Neurological exam: PRESENT: alert, awake, oriented to person. ABSENT: oriented to place, oriented to time, oriented to situation Results Laboratory Results: 11/28/19 07:30 11/28/19 07:30 11/28/19 11/28/19 07:30 07:30 WBC 7.2 RBC 4.19 L Hgb 12.9 L Hct 38.6 MCV 92 MCH 30.9 MCHC 33.5 RDW 14.0 Plt Count 205 Sodium 141.4 Potassium 4.4 Chloride 104 Carbon Dioxide 27 Anion Gap 10 BUN 33 H Creatinine 0.99 Est GFR ( Amer) > 60 Glucose 176 H Calcium 9.3 Magnesium 1.6 11/18/19 11/21/19 11/27/19 00:23 12:35 12:20 Troponin I 0.015 0.013 < 0.012 Impressions: Head CT 11/17/19 23:04 IMPRESSION: 1. No acute intracranial findings. 2. Chronic ischemic changes as on prior exam. Chest X-Ray 11/24/19 21:25 IMPRESSION: No evidence of acute cardiopulmonary disease. KUB X-Ray 11/24/19 21:25 IMPRESSION: 1. Proximal colonic fecal retention as well as gaseous distention of the colon. 2. No small bowel distention. Assessment and Plan - Diagnosis (1) Atrial fibrillation, persistent Is this a current diagnosis for this admission?: Yes (2) Chest pain Qualifiers: Chest pain type: unspecified Qualified Code(s): R07.9 - Chest pain, unspecified Is this a current diagnosis for this admission?: Yes (3) Aggressive behavior Is this a current diagnosis for this admission?: Yes (4) CAD (coronary artery disease) Qualifiers: Coronary Disease-Associated Artery/Lesion type: [place] artery Associated angina: without angina Is this a current diagnosis for this admission?: Yes (5) Dementia Qualifiers: Dementia type: unspecified type Dementia behavioral disturbance: with behavioral disturbance Qualified Code(s): F03.91 - Unspecified dementia with behavioral disturbance Is this a current diagnosis for this admission?: Yes (6) Diabetes Qualifiers: Diabetes mellitus type: type 2 Diabetes mellitus keno terminal operator insulin use: without prison use Diabetes mellitus complication status: without complication Qualified Code(s): E11.9 - Type 2 diabetes mellitus without complications Is this a current diagnosis for this admission?: Yes - Plan Summary Summary: Consults cardiology. Was informed that A. fib is new onset by ER provider. However I have been unable to confirm this as patient is a very poor historian and I have tried several times to get hold of family to no avail Chest pain is currently resolved. Troponin is negative and EKG seems unchanged since initial presentation. Coin Wrapping Machine Operator recommending echocardiogram. Nitroglycerin as needed Continue anti-psych meds Continue antidiabetic medications SSI and Accu-Cheks 11/28/2019 Discussed with patient's son today Theodore Benavidez ([phone], ) about patient's condition. 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 He would also like a DNR status. Awaiting echocardiogram to evaluate heart function Continue anti-diabetes medication Sliding scale insulin and Accu-Cheks Continue psych medications Currently chest pain is resolved. Awaiting placement at SNF once bed is available - Time Time Spent with patient: Less than 15 minutes Anticipated Discharge Disposition: Detention Facility Anticipated Discharge Timeframe: when bed available
[2019-11-28] MEDS: GLIMEPIRIDE 4 MG TABLET PO SCH ×2 (16:04→21:43)
[2019-11-28] MEDS: DIVALPROEX SODIUM 250 MG TABLET.DR PO SCH ×2 (16:04→21:44)
[2019-11-28] MEDS: DOCUSATE SODIUM 100 MG CAPSULE PO SCH ×2 (16:04→21:44)
--- NOTE | 2019-11-28 16:04 | ADVANCED CARE ---
- Diagnosis (1) Atrial fibrillation, persistent Diagnosis Current: Yes (2) Chest pain Diagnosis Current: Yes (5) Dementia Diagnosis Current: Yes Attendance: Patient's son and myself Resuscitation Status: Do Not Resuscitate Discussion: Discussed with patient's son today Theodore ([phone], ) about patient's condition. 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 Discussed how aggressive to get measures and he does not want overly aggressive measures. He wants him to be a DNR status. Explained work-up for his atrial fibrillation which he is okay with. Also explained that he will not be a candidate for anticoagulation which he understands and is okay with. Time Spent: 17mins
[2019-11-28] MEDS: ISOSORBIDE MONONITRATE 20 MG TABLET PO SCH ×2 (16:05→21:45)
[2019-11-28] MEDS: LISINOPRIL 5 MG TABLET PO SCH (16:07)
[2019-11-28] MEDS: RISPERIDONE 0.25 MG TABLET PO SCH ×2 (16:08→21:45)
[2019-11-28] MEDS: METOPROLOL SUCCINATE 25 MG TAB.SR.24H PO SCH ×2 (16:08→21:45)
[2019-11-28] MEDS: INSULIN LISPRO 100 UNIT/ML 3 ML VIAL SUBCUT SCH ×4 (21:38→22:00)
[2019-11-28] MEDS: CLOTRIMAZOLE/BETAMETHASONE DIP CREAM 15 GM TOP SCH (21:47)
--- NOTE | 2019-11-29 10:05 | PDOC PROGRESS REPORT ---
Subjective Progress Note for:: 11/29/19 Subjective:: DORA OROZCO is a 79 year old male with dementia and presumed history of hypertension, DM, HLD and CAD (as he is taking medications for all these conditions) who is consulted to our service for evaluation of chest pain and atrial fibrillation of unknown duration. The current history is obtained from review of his medical record as he is unable to answer any questions. The patient had been in the ED for at least 10 days when he was brought by EMS at the request of his family because they were not able to care for the patient any longer due to his advanced dementia and aggressiveness. He remained in the ED for 10 days awaiting placement but yesterday complained of chest pain. Unfortunately, the details of his pain are unknown as the patient cannot be specific or even remember his chest pain secondary to his dementia. Of note, he was also noted to be in A-fib with a controlled rate with a RBBB. The duration of this finding is also unknown. His telemetry this morning shows well controlled a-fib. 11/29/2019: The patient had an uneventful night. He is more awake this morning and answering questions. He continues to be pleasantly demented. His telemetry shows Physical exam on 11/29/2019: GENERAL: Pleasant and conversational. Pleasantly demented. Not in acute distress. Well groomed and well developed. HEENT: Normocephalic, atraumatic. Pupils equal. Sclerae anicteric. Oropharynx moist. NECK: No JVD. No carotid bruits. LUNGS: Clear to auscultation bilaterally. Normal respiratory effort without the use of accessory muscles or intercostal retractions. CARDIOVASCULAR: Irregularly irregular rate and rhythm, normal S1 and S2 without murmurs, rubs, or gallops. PMI not displaced. ABDOMEN: No masses or tenderness to palpation. No bruit. No splenomegaly or hepatomegaly. No abdominal aorta bruit noted. EXTREMITIES: No edema, no cyanosis, no clubbing. Below the knee amputation on the right. The leads mUSCULOSKELETAL: No chest tenderness to palpation. NEUROLOGIC: Nonfocal. No gross sensory or motor deficits bilateral upper or lower extremities. Reason For Visit: AFIB,CHEST PAIN Physical Exam Vital Signs: Temp Pulse Resp BP Pulse Ox 98.2 F 68 22 H 129/68 H 91 L 11/29/19 00:20 11/29/19 02:00 11/28/19 20:24 11/29/19 00:20 11/29/19 00:20 Intake & Output 11/27/19 11/28/19 11/29/19 06:59 06:59 06:59 Intake Total 50 Balance 50 Weight 62 kg Results Laboratory Results: 11/28/19 07:30 11/28/19 07:30 11/28/19 11/28/19 07:30 07:30 WBC 7.2 RBC 4.19 L Hgb 12.9 L Hct 38.6 MCV 92 MCH 30.9 MCHC 33.5 RDW 14.0 Plt Count 205 Sodium 141.4 Potassium 4.4 Chloride 104 Carbon Dioxide 27 Anion Gap 10 BUN 33 H Creatinine 0.99 Est GFR ( Amer) > 60 Glucose 176 H Calcium 9.3 Magnesium 1.6 11/18/19 11/21/19 11/27/19 00:23 12:35 12:20 Troponin I 0.015 0.013 < 0.012 Impressions: Head CT 11/17/19 23:04 IMPRESSION: 1. No acute intracranial findings. 2. Chronic ischemic changes as on prior exam. Chest X-Ray 11/24/19 21:25 IMPRESSION: No evidence of acute cardiopulmonary disease. KUB X-Ray 11/24/19 21:25 IMPRESSION: 1. Proximal colonic fecal retention as well as gaseous distention of the colon. 2. No small bowel distention. 11/28/19 07:30 11/28/19 07:30 MCV 92 fl (80-97) 11/28/19 07:30 MCH 30.9 pg (27.0-33.4) 11/28/19 07:30 MCHC 33.5 g/dL (32.0-36.0) 11/28/19 07:30 RDW 14.0 % (11.5-14.0) 11/28/19 07:30 Seg Neutrophils % 62.6 % (42-78) 11/21/19 12:35 Chloride 104 mmol/L (98-107) 11/28/19 07:30 Carbon Dioxide 27 mmol/L (22-30) 11/28/19 07:30 Anion Gap 10 (5-19) 11/28/19 07:30 Est GFR ( Amer) > 60 (>60) 11/28/19 07:30 Glucose 176 mg/dL (75-110) H 11/28/19 07:30 Calcium 9.3 mg/dL (8.4-10.2) 11/28/19 07:30 Magnesium 1.6 mg/dL (1.6-2.3) 11/28/19 07:30 Total Bilirubin 1.1 mg/dL (0.2-1.3) 11/21/19 12:35 AST 25 U/L (17-59) 11/21/19 12:35 Alkaline Phosphatase 49 U/L (38-126) 11/21/19 12:35 Total Protein 7.2 g/dL (6.3-8.2) 11/21/19 12:35 Albumin 4.0 g/dL (3.5-5.0) 11/21/19 12:35 Urine Color YELLOW 11/18/19 03:50 Urine Appearance CLEAR 11/18/19 03:50 Urine pH 6.0 (5.0-9.0) 11/18/19 03:50 Ur Specific [place] 1.015 11/18/19 03:50 Urine Protein NEGATIVE mg/dL (NEGATIVE) 11/18/19 03:50 Urine Glucose (UA) NEGATIVE mg/dL (NEGATIVE) 11/18/19 03:50 Urine Ketones TRACE mg/dL (NEGATIVE) H 11/18/19 03:50 Urine Blood NEGATIVE (NEGATIVE) 11/18/19 03:50 Urine Nitrite NEGATIVE (NEGATIVE) 11/18/19 03:50 Ur Leukocyte Esterase NEGATIVE (NEGATIVE) 11/18/19 03:50 Urine WBC (Auto) 0 /HPF 11/18/19 03:50 Urine RBC (Auto) 0 /HPF 11/18/19 03:50 11/18/19 11/21/19 11/27/19 00:23 12:35 12:20 Troponin I 0.015 0.013 < 0.012 Current Medication List Generic Name Dose Route Start Last Admin Trade Name Freq PRN Reason Stop Dose Admin Acetaminophen 650 mg 11/24/19 21:24 11/25/19 18:28 Tylenol 325 Mg Tablet PO 12/24/19 21:23 650 mg Q4HP PRN Administration FOR PAIN SCALE 3-5 Albuterol/Ipratropium 3 ml 11/27/19 15:45 Duoneb 3 Ml Ampul NEB 12/27/19 15:44 [id number] PRN SHORTNESS OF BREATH Betamethasone/Clotrimazole 1 applic 11/24/19 18:00 11/28/19 21:47 Lotrisone Cream 15 Gm TOP 12/24/19 17:59 Not Given BID [facility] Buspirone HCl 5 mg 11/18/19 18:00 11/28/19 21:44 Buspar 10 Mg Tablet PO 12/18/19 17:59 Not Given BID [facility]ATTY Dextrose 25 gm 11/27/19 15:56 Dextrose Inj 50% Syringe (25 Gm/50 Ml) IV 12/27/19 15:55 PRN PRN PER PROTOCOL Protocol Dextrose 12.5 gm 11/27/19 15:56 Dextrose Inj 50% Syringe (25 Gm/50 Ml) IV 12/27/19 15:55 PRN PRN FOR BG 50-69 IN ALERT PATIENT Protocol Divalproex Sodium 250 mg 11/18/19 18:00 11/28/19 21:44 Depakote Ec 250 Mg Tablet. PO 12/18/19 17:59 Not Given BID [facility] Docusate Sodium 200 mg 11/19/19 18:00 11/28/19 21:44 Colace 100 Mg Capsule PO 12/19/19 17:59 Not Given BID [facility] Enoxaparin Sodium 40 mg 11/27/19 17:00 11/28/19 15:54 Lovenox Inj 40 Mg/0.4 Ml Disp.Syrin SUBCUT 12/27/19 16:59 Not Given DAILY [facility] Glimepiride 4 mg 11/18/19 10:00 11/28/19 21:43 Amaryl 4 Mg Tablet PO 12/18/19 09:59 Not Given BID [facility] Glucagon 1 mg 11/27/19 15:56 Glucagen Inj 1 Mg Vial IM 12/27/19 15:55 PRN PRN Evaluate for BG < 70 Protocol Glucose 15 gm 11/27/19 15:56 Glutose 40% Gel 15 Gm Tube PO 12/27/19 15:55 PRN PRN FOR BG 50-69 IN ALERT PATIENT Protocol Glucose 30 gm 11/27/19 15:56 Glutose 40% Gel 15 Gm Tube PO 12/27/19 15:55 PRN PRN FOR BG < 50 IN ALERT PATIENT Protocol Insulin Human Lispro 0 - 12 unit 11/27/19 16:00 11/28/19 22:00 Humalog Insulin 100 Unit/1 Ml 3 Ml Vial SUBCUT 12/27/19 15:59 Not Given ACHS [facility] Protocol Isosorbide Mononitrate 20 mg 11/18/19 10:00 11/28/19 21:45 Ismo 20 Mg Tablet PO 12/18/19 09:59 Not Given TID [facility] Lisinopril 5 mg 11/18/19 10:00 11/28/19 16:07 Prinivil 5 Mg Tablet PO 12/18/19 09:59 Not Given DAILY [facility] Metoprolol Succinate 25 mg 11/18/19 10:00 11/28/19 21:45 Toprol Xl 25 Mg Tab.Sr PO 12/18/19 09:59 Not Given BID [facility] Nitroglycerin 1 tab 11/27/19 15:55 Nitrostat 0.4 Mg (1/150 Gr) Tabs 25/Bottle SL 12/27/19 15:54 Q5MP PRN FOR CHEST PAIN Risperidone 0.25 mg 11/18/19 18:00 11/28/19 21:45 Risperdal 0.25 Mg Tablet PO 12/18/19 17:59 Not Given BID [facility] Sodium Chloride 2.5 ml 11/27/19 22:00 11/29/19 05:13 Saline Flush 2.5 Ml Monoject Prefil Syrin IV 12/27/19 21:59 Not Given Q8 [facility] Discontinued Medications Generic Name Dose Route Start Last Admin Trade Name Freq PRN Reason Stop Dose Admin Acetaminophen 650 mg 11/23/19 23:38 11/24/19 00:12 Tylenol 325 Mg Tablet PO 11/23/19 23:39 650 mg NOW ONE Administration Acetaminophen 650 mg 11/24/19 21:08 11/24/19 21:29 Tylenol 325 Mg Tablet PO 11/24/19 21:09 650 mg NOW ONE Administration Aspirin 325 mg 11/27/19 14:00 11/27/19 14:26 Aspirin 325 Mg Tablet PO 11/27/19 14:01 325 mg NOW ONE Administration Buspirone HCl 5 mg 11/19/19 22:00 11/19/19 22:23 Buspar 10 Mg Tablet PO 11/19/19 22:01 5 mg NOW ONE Administration Divalproex Sodium 250 mg 11/19/19 22:00 11/19/19 22:24 Depakote Ec 250 Mg Tablet. PO 11/19/19 22:01 250 mg NOW ONE Administration Docusate Sodium 200 mg 11/19/19 22:00 11/19/19 22:24 Colace 100 Mg Capsule PO 11/19/19 22:01 200 mg NOW ONE Administration Glimepiride 4 mg 11/19/19 22:00 11/19/19 22:54 Amaryl 4 Mg Tablet PO 11/19/19 22:01 4 mg NOW ONE Administration Haloperidol 2.5 mg 11/17/19 23:06 11/17/19 23:37 Haldol 5 Mg Tablet PO 11/17/19 23:07 Not Given NOW ONE Haloperidol Lactate 3 mg 11/17/19 23:37 11/17/19 23:51 Haldol 5 Mg/Ml Inj 1 Ml Vial IM 11/17/19 23:38 3 mg NOW ONE Administration Isosorbide Mononitrate 20 mg 11/19/19 22:00 11/19/19 22:27 Ismo 20 Mg Tablet PO 11/19/19 22:01 Not Given NOW ONE Lactulose 20 gm 11/21/19 14:43 11/21/19 15:38 Cephulac Syrup 20 Gm/30 Ml Udcup PO 11/21/19 14:44 20 gm NOW ONE Administration Lidocaine HCl 5 ml 11/18/19 03:05 11/18/19 08:43 Xylocaine 2% Uro-Jet 5 Ml Kit MM 11/18/19 03:06 Not Given NOW ONE Magnesium Hydroxide 30 ml 11/20/19 10:57 11/20/19 11:45 Milk Of Magnesia 30 Ml Udcup PO 11/20/19 10:58 30 ml NOW ONE Administration Metoprolol Succinate 25 mg 11/19/19 22:00 11/19/19 22:54 Toprol Xl 25 Mg Tab.Sr PO 11/19/19 22:01 25 mg NOW ONE Administration Risperidone 0.25 mg 11/19/19 22:00 11/19/19 22:24 Risperdal 0.25 Mg Tablet PO 11/19/19 22:01 0.25 mg NOW ONE Administration Simethicone 160 mg 11/21/19 14:43 11/21/19 15:38 Mylicon 80 Mg Chewable Tablet PO 11/21/19 14:44 160 mg NOW ONE Administration Sodium Biphosphate/Sodium Phosphate 133 ml 11/25/19 19:46 11/25/19 20:27 Fleet Enema (Adult) 133 Ml IA 11/25/19 19:47 133 ml NOW ONE Administration Tuberculin PPD 5 tu 11/19/19 10:50 11/19/19 11:00 Tubersol Inj 5 Tu/0.1 Ml 1 Ml Vial ID 11/19/19 10:51 5 tu NOW ONE Administration Assessment & Plan - Diagnosis (1) Chest pain Qualifiers: Chest pain type: unspecified Qualified Code(s): R07.9 - Chest pain, unspecified Is this a current diagnosis for this admission?: Yes Plan: No more recurrences. Given his dementia and the lack of recurrent symptoms, he is not a candidate for aggressive or invasive cardiac procedures. Recommendations: -Echocardiogram as requested. -Continue with current management. (2) CAD (coronary artery disease) Qualifiers: Coronary Disease-Associated Artery/Lesion type: [place] artery Associated angina: without angina Is this a current diagnosis for this admission?: Yes Plan: The patient presumably has CAD given the medications he is on. Unfortunately he cannot provide any details of his history due to his advanced dementia and there are no family members present to obtain further details. The patient is not a candidate for aggressive work up or invasive procedures therefore we will continue to manage him medically. He is currently chest pain-free. (3) Atrial fibrillation, persistent Is this a current diagnosis for this admission?: Yes Plan: The patient has atrial fibrillation of unknown duration. Luckily his rate is well controlled. His CHADS 2 VASC score is 5 therefore he requires anticoagulation however his dementia is a relative contraindication as he may develop a bleed and will not be cognizant enough as to recognize it and seek medical attention therefore we will hold off full anticoagulation for now and until I discuss this issue with his hospitalist and any available family members. (4) Diabetes Qualifiers: Diabetes mellitus type: type 2 Diabetes mellitus correction insulin use: without terminal press operator use Diabetes mellitus complication status: without complication Qualified Code(s): E11.9 - Type 2 diabetes mellitus without complications Is this a current diagnosis for this admission?: Yes Plan: Further management per hospitalist team.
[2019-11-29] MEDS: INSULIN LISPRO 100 UNIT/ML 3 ML VIAL SUBCUT SCH ×4 (10:16→22:50)
[2019-11-29] MEDS: BUSPIRONE HCL 10 MG TABLET PO SCH ×2 (10:18→17:25)
[2019-11-29] MEDS: METOPROLOL SUCCINATE 25 MG TAB.SR.24H PO SCH ×2 (10:19→17:25)
[2019-11-29] MEDS: LISINOPRIL 5 MG TABLET PO SCH (10:19)
[2019-11-29] MEDS: DIVALPROEX SODIUM 250 MG TABLET.DR PO SCH ×2 (10:19→17:25)
[2019-11-29] MEDS: DOCUSATE SODIUM 100 MG CAPSULE PO SCH ×2 (10:19→17:25)
[2019-11-29] MEDS: ISOSORBIDE MONONITRATE 20 MG TABLET PO SCH ×3 (10:20→17:27)
[2019-11-29] MEDS: ENOXAPARIN SODIUM INJ 40 MG/0.4 ML DISP.SYRIN SUBCUT SCH (10:20)
[2019-11-29] MEDS: CLOTRIMAZOLE/BETAMETHASONE DIP CREAM 15 GM TOP SCH ×2 (10:20→17:32)
[2019-11-29] MEDS: GLIMEPIRIDE 4 MG TABLET PO SCH ×2 (10:21→17:27)
[2019-11-29] MEDS: RISPERIDONE 0.25 MG TABLET PO SCH ×2 (10:34→17:32)
--- NOTE | 2019-11-29 14:46 | PDOC PROGRESS REPORT ---
Subjective Progress Note for:: 11/29/19 Subjective:: Patient refused to take some of his pills yesterday but has been compliant with taking his pills this morning. Limited in terms of how much food he eats. He is complains of nothing this morning. States he feels well. Does not remember prior conversations. Still awaiting placement. Echocardiogram being performed during encounter this morning. Reason For Visit: AFIB,CHEST PAIN Physical Exam Vital Signs: Temp Pulse Resp BP Pulse Ox 98.7 F 79 16 98/61 L 95 11/29/19 10:00 11/29/19 14:32 11/29/19 14:32 11/29/19 10:00 11/29/19 14:32 Intake & Output 11/28/19 11/29/19 11/30/19 06:59 06:59 06:59 Intake Total 50 Balance 50 Weight 62 kg 62.5 kg General appearance: PRESENT: no acute distress, cooperative Neck exam: ABSENT: JVD Respiratory exam: PRESENT: symmetrical, unlabored. ABSENT: tachypnea, wheezes Cardiovascular exam: PRESENT: irregular rhythm, +S1, +S2. ABSENT: tachycardia Neurological exam: PRESENT: alert, awake, oriented to person. ABSENT: oriented to place, oriented to time, oriented to situation Results Laboratory Results: 11/28/19 07:30 11/28/19 07:30 11/18/19 11/21/19 11/27/19 00:23 12:35 12:20 Troponin I 0.015 0.013 < 0.012 Impressions: Head CT 11/17/19 23:04 IMPRESSION: 1. No acute intracranial findings. 2. Chronic ischemic changes as on prior exam. Chest X-Ray 11/24/19 21:25 IMPRESSION: No evidence of acute cardiopulmonary disease. KUB X-Ray 11/24/19 21:25 IMPRESSION: 1. Proximal colonic fecal retention as well as gaseous distention of the colon. 2. No small bowel distention. Assessment and Plan - Diagnosis (1) Atrial fibrillation, persistent Is this a current diagnosis for this admission?: Yes (2) Chest pain Qualifiers: Chest pain type: unspecified Qualified Code(s): R07.9 - Chest pain, unspecified Is this a current diagnosis for this admission?: Yes (3) Aggressive behavior Is this a current diagnosis for this admission?: Yes (4) CAD (coronary artery disease) Qualifiers: Coronary Disease-Associated Artery/Lesion type: [place] artery Associated angina: without angina Is this a current diagnosis for this admission?: Yes (5) Dementia Qualifiers: Dementia type: unspecified type Dementia behavioral disturbance: with behavioral disturbance Qualified Code(s): F03.91 - Unspecified dementia with behavioral disturbance Is this a current diagnosis for this admission?: Yes (6) Diabetes Qualifiers: Diabetes mellitus type: type 2 Diabetes mellitus rn long term care insulin use: without rn long term care use Diabetes mellitus complication status: without complication Qualified Code(s): E11.9 - Type 2 diabetes mellitus without complications Is this a current diagnosis for this admission?: Yes - Plan Summary Summary: Consults cardiology. Was informed that A. fib is new onset by ER provider. However I have been unable to confirm this as patient is a very poor historian and I have tried several times to get hold of family to no avail Chest pain is currently resolved. Troponin is negative and EKG seems unchanged since initial presentation. [place] recommending echocardiogram. Nitroglycerin as needed Continue anti-psych meds Continue antidiabetic medications SSI and Accu-Cheks 11/28/2019 Discussed with patient's son today Theodore Benavidez ([phone], ) about patient's condition. 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 He would also like a DNR status. Awaiting echocardiogram to evaluate heart function Continue anti-diabetes medication Sliding scale insulin and Accu-Cheks Continue psych medications Currently chest pain is resolved. Awaiting placement at SNF once bed is available 11/29/2019 Awaiting echocardiogram. Heart rate remains controlled. Discharge planning working on placement Encouraged to eat and take his prescription medications. Has not been agitated through all of my encounters. Perform preplacement COVID-19 screen. - Time Time Spent with patient: Less than 15 minutes Anticipated [facility]position[facility] Anticipated Discharge Timeframe: when bed available
--- NOTE | 2019-11-29 18:51 | XCELERA REPORT ---
[address] [address] Transthoracic Echocardiogram Report Name: DORA OROZCO SR Age: 79 yrs Gender: Male : 1940 Patient Status: Inpatient Patient Location: [address] [place] [address] Study Date: 11/29/2019 09:58 AM Height: 70 in Weight: 158 lb BSA: 1.9 m2 Procedure: A complete two-dimensional transthoracic echocardiogram was performed (2D, M-mode, spectral and color flow Doppler). The study was technically adequate with some images being suboptimal in quality. The apical views were difficult to obtain and are suboptimal in quality. Reason For Study: afib chest pain Ordering Physician: ELINA MORA Performed By: Oralia Lopez Interpretation Summary The left ventricle is grossly normal size. The left ventricular ejection fraction is normal. The Ejection Fraction estimate is 55-60%. LV diastolic function could not be adequately assessed due to atrial fibrilation. The left ventricular wall motion is normal. Thrombus can not be excluded. LV diastolic function could not be adequately assessed due to atrial fibrilation. Mild biatrial enlargement. Trace MR, trace TR. No prior studies for comparison. MMode/2D Measurements & Calculations RVDd: 4.2 cm LVIDd: 4.0 cm FS: 32.8 % Ao root diam: 3.4 cm IVSd: 1.0 cm LVIDs: 2.7 cm EDV(Teich): 71.6 ml Ao root area: 9.0 cm2 LVPWd: 0.97 cm ESV(Teich): 27.4 ml EF(Teich): 61.8 % Doppler Measurements & Calculations MV E max shubham: MV dec slope: Ao V2 max: LV V1 max P.8 cm/sec 454.9 cm/sec2 88.9 cm/sec 1.9 mmHg MV dec time: 0.17 sec Ao max PG: LV V1 max: 3.2 mmHg 69.6 cm/sec PA V2 max: 75.8 cm/sec PA max P.3 mmHg Left Ventricle The left ventricle is grossly normal size. The left ventricular ejection fraction is normal. The Ejection Fraction estimate is 55-60%. LV diastolic function could not be adequately assessed due to atrial fibrilation. The left ventricular wall motion is normal. Thrombus can not be excluded. Right Ventricle The right ventricle is mild to moderately dilated. Atria The right atrium is mildly dilated. The left atrium is mildly dilated. Can not rule out PFO/ASD due to poor subcostal window. Mitral Valve The mitral valve is normal in structure and function. There is a trace amount of mitral regurgitation. Aortic Valve The aortic valve is normal in structure and functions normally. There is no aortic valve stenosis. No aortic regurgitation is present. Tricuspid Valve The tricuspid valve is not well visualized, but is grossly normal. There is a trace or physiologic amount of tricuspid regurgitation. Pulmonic Valve The pulmonic valve is not well visualized. There is no pulmonic valvular regurgitation. Great Vessels The inferior vena cava appeared normal and decreased > 50% with respiration (RAP 5-10 mmHg). Effusions There is no pericardial effusion. There is no pleural effusion. : ELINA MORA Antonio
[2019-11-30] MEDS: INSULIN LISPRO 100 UNIT/ML 3 ML VIAL SUBCUT SCH ×4 (10:13→22:41)
[2019-11-30] MEDS: LISINOPRIL 5 MG TABLET PO SCH (10:14)
[2019-11-30] MEDS: METOPROLOL SUCCINATE 25 MG TAB.SR.24H PO SCH ×2 (10:14→17:16)
[2019-11-30] MEDS: BUSPIRONE HCL 10 MG TABLET PO SCH ×2 (10:14→17:16)
[2019-11-30] MEDS: ISOSORBIDE MONONITRATE 20 MG TABLET PO SCH ×3 (10:15→17:17)
[2019-11-30] MEDS: RISPERIDONE 0.25 MG TABLET PO SCH ×2 (10:15→17:18)
[2019-11-30] MEDS: GLIMEPIRIDE 4 MG TABLET PO SCH ×2 (10:15→17:17)
[2019-11-30] MEDS: DOCUSATE SODIUM 100 MG CAPSULE PO SCH ×2 (10:15→17:16)
[2019-11-30] MEDS: DIVALPROEX SODIUM 250 MG TABLET.DR PO SCH ×2 (10:15→17:17)
[2019-11-30] MEDS: ENOXAPARIN SODIUM INJ 40 MG/0.4 ML DISP.SYRIN SUBCUT SCH (10:16)
[2019-11-30] MEDS: CLOTRIMAZOLE/BETAMETHASONE DIP CREAM 15 GM TOP SCH ×2 (10:17→17:17)
--- NOTE | 2019-11-30 15:29 | PDOC PROGRESS REPORT ---
Subjective Progress Note for:: 11/30/19 Subjective:: No acute overnight events. Patient is doing well and denies any pain or discomfort. Per RN, there have been no behavioral issues; patient is pleasant and cooperative. He was out of bed to chair for several hours yesterday. Reason For Visit: AFIB,CHEST PAIN Physical Exam Vital Signs: Temp Pulse Resp BP Pulse Ox 97.7 F 71 16 111/73 94 11/30/19 08:41 11/30/19 09:02 11/30/19 09:02 11/29/19 23:31 11/30/19 09:02 Intake & Output 11/29/19 11/30/19 12/01/19 06:59 06:59 06:59 Intake Total 50 472 Balance 50 472 Weight 62.5 kg 66.1 kg Additional comments: General: appears stated age, alert and pleasant Head: normocephalic, atraumatic Eyes: anicteric sclera ENT: moist mucus membranes, no oropharyngeal erythema/exudate Neck: no lymphadenopathy Lungs: clear to auscultation bilaterally Heart: regular rate and rhythm Abdomen: normoactive bowel sounds, soft, non-tender, non-distended : no CVA tenderness, no suprapubic tenderness Extremities: warm and well perfused, no edema, s/p R BKA Neuro: alert, oriented to self only Skin: no rash Results Laboratory Results: 11/28/19 07:30 11/28/19 07:30 11/18/19 11/21/19 11/27/19 00:23 12:35 12:20 Troponin I 0.015 0.013 < 0.012 Impressions: Head CT 11/17/19 23:04 IMPRESSION: 1. No acute intracranial findings. 2. Chronic ischemic changes as on prior exam. Chest X-Ray 11/24/19 21:25 IMPRESSION: No evidence of acute cardiopulmonary disease. KUB X-Ray 11/24/19 21:25 IMPRESSION: 1. Proximal colonic fecal retention as well as gaseous distention of the colon. 2. No small bowel distention. Assessment and Plan - Plan Summary Summary: 79 year old male with advanced dementia who initially presented on 11/17/2019 from home as his family was no longer able to care for him. He was awaiting placement in the ED, when on 11/27/2019, a brief episode of A. fib was noted on telemetry. We assume A. fib is new-onset, although chronicity is unclear due to the fact that patient is a poor historian (due to dementia). Troponin negative and EKG unchanged. [employer] Production Manager consulted and recommended echocardiogram, which did not show evidence of decreased EF, WMA or other acute changes. Patient has had no further episodes of A fib on telemetry over several days. Plan to DC telemetry today. During this admission, Dr. Hicks discussed with patient's son, Theodore Benavidez ([phone], ) patient's condition. Code status changed to DNR. Patient is currently awaiting placement. COVID-19 screen has been performed. Patient remains alert, cooperative and pleasant. Delirium precautions in place and patient to be out of bed to chair daily with assistance. - Time Time Spent with patient: 25-34 minutes Anticipated Discharge Disposition: [facility]-Way Facility Anticipated Discharge Timeframe: when bed available
[2019-12-01] MEDS: LISINOPRIL 5 MG TABLET PO SCH (10:49)
[2019-12-01] MEDS: METOPROLOL SUCCINATE 25 MG TAB.SR.24H PO SCH ×2 (10:50→19:18)
[2019-12-01] MEDS: DIVALPROEX SODIUM 250 MG TABLET.DR PO SCH ×2 (10:51→19:18)
[2019-12-01] MEDS: BUSPIRONE HCL 10 MG TABLET PO SCH ×2 (10:51→19:17)
[2019-12-01] MEDS: ISOSORBIDE MONONITRATE 20 MG TABLET PO SCH ×3 (10:52→19:17)
[2019-12-01] MEDS: ENOXAPARIN SODIUM INJ 40 MG/0.4 ML DISP.SYRIN SUBCUT SCH (10:53)
[2019-12-01] MEDS: GLIMEPIRIDE 4 MG TABLET PO SCH ×2 (10:53→19:17)
[2019-12-01] MEDS: RISPERIDONE 0.25 MG TABLET PO SCH ×2 (10:53→19:18)
[2019-12-01] MEDS: CLOTRIMAZOLE/BETAMETHASONE DIP CREAM 15 GM TOP SCH ×2 (10:54→19:17)
[2019-12-01] MEDS: INSULIN LISPRO 100 UNIT/ML 3 ML VIAL SUBCUT SCH ×3 (10:54→19:17)
--- NOTE | 2019-12-01 18:02 | PDOC PROGRESS REPORT ---
Subjective Progress Note for:: 12/01/19 Subjective:: NAEO. He is pleasant and conversant. Reason For Visit: AFIB,CHEST PAIN Physical Exam Vital Signs: Temp Pulse Resp BP Pulse Ox 97.9 F 75 20 120/46 L 91 L 12/01/19 14:39 12/01/19 14:39 12/01/19 14:39 12/01/19 14:39 12/01/19 14:39 Intake & Output 11/30/19 12/01/19 12/02/19 06:59 06:59 06:59 Intake Total 472 100 Balance 472 100 Weight 66.1 kg 65.2 kg Additional comments: General: appears stated age, alert and pleasant Head: normocephalic, atraumatic Eyes: anicteric sclera ENT: moist mucus membranes, no oropharyngeal erythema/exudate Neck: no lymphadenopathy Lungs: clear to auscultation bilaterally Heart: regular rate and rhythm Abdomen: normoactive bowel sounds, soft, non-tender, non-distended : no CVA tenderness, no suprapubic tenderness Extremities: warm and well perfused, no edema, s/p R BKA Neuro: alert, oriented to self only Skin: no rash Results Laboratory Results: 11/28/19 07:30 11/28/19 07:30 11/18/19 11/21/19 11/27/19 00:23 12:35 12:20 Troponin I 0.015 0.013 < 0.012 Impressions: Head CT 11/17/19 23:04 IMPRESSION: 1. No acute intracranial findings. 2. Chronic ischemic changes as on prior exam. Chest X-Ray 11/24/19 21:25 IMPRESSION: No evidence of acute cardiopulmonary disease. KUB X-Ray 11/24/19 21:25 IMPRESSION: 1. Proximal colonic fecal retention as well as gaseous distention of the colon. 2. No small bowel distention. Assessment and Plan - Plan Summary Summary: 79 year old male with advanced dementia who initially presented on 11/17/2019 from home as his family was no longer able to care for him. He was awaiting placement in the ED, when on 11/27/2019, a brief episode of A. fib was noted on telemetry. We assume A. fib is new-onset, although chronicity is unclear due to the fact that patient is a poor historian (due to dementia). Troponin negative and EKG unchanged. Administrative Assistant consulted and recommended echocardiogram, which did not show evidence of decreased EF, WMA or other acute changes. Patient has had no further episodes of A fib on telemetry over several days. Plan to DC telemetry today. During this admission, Dr. Hicks discussed with patient's son, Theodore Benavidez ([phone], ) patient's condition. Code status changed to DNR. Patient is currently awaiting placement. COVID-19 screen has been performed, results pending. Patient remains alert, cooperative and pleasant. Delirium precautions in place and patient to be out of bed to chair daily with assistance. - Time Time Spent with patient: 35 or more minutes Anticipated Discharge Disposition: Long Term Facility Anticipated Discharge Timeframe: when bed available
[2019-12-02] MEDS: INSULIN LISPRO 100 UNIT/ML 3 ML VIAL SUBCUT SCH ×3 (05:23→12:56)
[2019-12-02] MEDS: DIVALPROEX SODIUM 250 MG TABLET.DR PO SCH (10:38)
[2019-12-02] MEDS: GLIMEPIRIDE 4 MG TABLET PO SCH (10:38)
[2019-12-02] MEDS: BUSPIRONE HCL 10 MG TABLET PO SCH (10:38)
[2019-12-02] MEDS: LISINOPRIL 5 MG TABLET PO SCH (10:39)
[2019-12-02] MEDS: RISPERIDONE 0.25 MG TABLET PO SCH (10:39)
[2019-12-02] MEDS: ISOSORBIDE MONONITRATE 20 MG TABLET PO SCH ×2 (10:39→13:54)
[2019-12-02] MEDS: METOPROLOL SUCCINATE 25 MG TAB.SR.24H PO SCH (10:39)
[2019-12-02] MEDS: ENOXAPARIN SODIUM INJ 40 MG/0.4 ML DISP.SYRIN SUBCUT SCH (10:40)
[2019-12-02] MEDS: CLOTRIMAZOLE/BETAMETHASONE DIP CREAM 15 GM TOP SCH (11:39)
[2019-12-02 13:21] VITALS: BP 112/57
--- NOTE | 2019-12-02 14:33 | PDOC TRANSFER SUMMARY ---
Impression - Admit/DC Date/PCP Admission Date/Primary Care Provider: 11/27/19 15:46 Discharge Date: 12/02/19 - Discharge Diagnosis (1) Paroxysmal atrial tachycardia by electrocardiogram Is this a current diagnosis for this admission?: Yes (2) Advanced dementia Is this a current diagnosis for this admission?: Yes (3) DM2 (diabetes mellitus, type 2) Is this a current diagnosis for this admission?: Yes (4) CAD (coronary artery disease) Is this a current diagnosis for this admission?: Yes - Assessment Summary: 79 year old male with advanced dementia who initially presented on 11/17/2019 from home as his family was no longer able to care for him. He was awaiting placement in the ED when, on 11/27/2019, a brief episode of A. fib was noted on telemetry. We assume A. fib is new-onset, although chronicity is unclear due to the fact that patient is a poor historian (due to dementia). Troponin was negative and EKG was unchanged from baseline. Patient Information Coordinator consulted and recommended echocardiogram, which did not show evidence of decreased EF, wall motion abnormalities or other acute changes. Patient has had no further episodes of A fib on telemetry over several days. Advanced care planning was discussed with patient's son, Theodore Benavidez , ), who changed Mr. Orozco's code status to DNR/DNI. COVID-19 screen has been performed, and was negative. Patient remains alert, cooperative and pleasant. Delirium precautions in place and patient has been out of bed to chair daily with assistance. - Additional Information Resuscitation Status: Do Not Resuscitate Discharge Diet: Cardiac, Diabetic Discharge Activity: Activity As Tolerated, Other - Requires assistance with transfers Home Medications: Metoprolol Tartrate [Lopressor 25 mg Tablet] 25 mg PO Q12 11/18/19 Pravastatin Sodium 40 mg PO DAILY 11/18/19 Acetaminophen [Tylenol 325 mg Tablet] 650 mg PO Q4HP PRN tablet 12/02/19 Buspirone HCl [Buspar 10 mg Tablet] 5 mg PO BID tablet 12/02/19 Glimepiride [Amaryl 4 mg Tablet] 4 mg PO BID tablet 12/02/19 Insulin Lispro [Humalog Insulin (Lispro) 100 unit/mL] 0 - 12 unit SUBCUT ACHS unit 12/02/19 Ipratropium/Albuterol Sulfate [Duoneb 3 ml Ampul] 3 ml NEB RTQ8HP PRN vial.neb 12/02/19 Isosorbide Mononitrate [Ismo 20 mg Tablet] 10 mg PO TID tablet 12/02/19 Lisinopril [Prinivil 5 mg Tablet] 2.5 mg PO DAILY tablet 12/02/19 Nitroglycerin [Nitrostat 0.4 mg (1/150 Gr) Tabs 25/Bottle] 1 tab SL Q5MP PRN bottle 12/02/19 Risperidone [Risperdal 0.25 mg Tablet] 0.25 mg PO BID tablet 12/02/19 History of Present Illiness History of Present Illness: THEODORE OROZCO is a 79 year old male Physical Exam Vital Signs: Temp Pulse Resp BP Pulse Ox 97.8 F 82 20 112/57 L 95 12/02/19 12:22 12/02/19 12:22 12/02/19 12:22 12/02/19 12:22 12/02/19 12:22 Intake & Output 12/01/19 12/02/19 12/03/19 06:59 06:59 06:59 Intake Total 100 0 Balance 100 0 Weight 65.2 kg 62.5 kg Results Laboratory Results: WBC 7.2 10^3/uL (4.0-10.5) 11/28/19 07:30 RBC 4.19 10^6/uL (4.35-5.55) L 11/28/19 07:30 Hgb 12.9 g/dL (13.5-17.0) L 11/28/19 07:30 Hct 38.6 % (37.9-51.0) 11/28/19 07:30 MCV 92 fl (80-97) 11/28/19 07:30 MCH 30.9 pg (27.0-33.4) 11/28/19 07:30 MCHC 33.5 g/dL (32.0-36.0) 11/28/19 07:30 RDW 14.0 % (11.5-14.0) 11/28/19 07:30 Plt Count 205 10^3/uL (150-450) 11/28/19 07:30 Lymph % (Auto) 28.5 % (13-45) 11/21/19 12:35 Perkins % (Auto) 8.0 % (3-13) 11/21/19 12:35 Eos % (Auto) 0.7 % (0-6) 11/21/19 12:35 Baso % (Auto) 0.2 % (0-2) 11/21/19 12:35 Absolute Neuts (auto) 4.8 10^3/uL (1.7-8.2) 11/21/19 12:35 Absolute Lymphs (auto) 2.2 10^3/uL (0.5-4.7) 11/21/19 12:35 Absolute Monos (auto) 0.6 10^3/uL (0.1-1.4) 11/21/19 12:35 Absolute Eos (auto) 0.1 10^3/uL (0.0-0.6) 11/21/19 12:35 Absolute Basos (auto) 0.0 10^3/uL (0.0-0.2) 11/21/19 12:35 Seg Neutrophils % 62.6 % (42-78) 11/21/19 12:35 Sodium 141.4 mmol/L (137-145) 11/28/19 07:30 Potassium 4.4 mmol/L (3.6-5.0) 11/28/19 07:30 Chloride 104 mmol/L (98-107) 11/28/19 07:30 Carbon Dioxide 27 mmol/L (22-30) 11/28/19 07:30 Anion Gap 10 (5-19) 11/28/19 07:30 BUN 33 mg/dL (7-20) H 11/28/19 07:30 Creatinine 0.99 mg/dL (0.52-1.25) 11/28/19 07:30 Est GFR ( Amer) > 60 (>60) 11/28/19 07:30 Est GFR (MDRD) Non-Af > 60 (>60) 11/28/19 07:30 Glucose 176 mg/dL (75-110) H 11/28/19 07:30 POC Glucose 191 mg/dL (70-110) H 12/02/19 11:23 Calcium 9.3 mg/dL (8.4-10.2) 11/28/19 07:30 Magnesium 1.6 mg/dL (1.6-2.3) 11/28/19 07:30 Total Bilirubin 1.1 mg/dL (0.2-1.3) 11/21/19 12:35 Direct Bilirubin 0.1 mg/dL (0.0-0.4) 11/21/19 12:35 Neonat Total Bilirubin Not Reportable 11/21/19 12:35 Neonat Direct Bilirubin Not Reportable 11/21/19 12:35 Neonat Indirect Bili Not Reportable 11/21/19 12:35 AST 25 U/L (17-59) 11/21/19 12:35 ALT 14 U/L (<50) 11/21/19 12:35 Alkaline Phosphatase 49 U/L (38-126) 11/21/19 12:35 Troponin I < 0.012 ng/mL 11/27/19 12:20 Total Protein 7.2 g/dL (6.3-8.2) 11/21/19 12:35 Albumin 4.0 g/dL (3.5-5.0) 11/21/19 12:35 Urine Color YELLOW 11/18/19 03:50 Urine Appearance CLEAR 11/18/19 03:50 Urine pH 6.0 (5.0-9.0) 11/18/19 03:50 Ur Specific Vinson 1.015 11/18/19 03:50 Urine Protein NEGATIVE mg/dL (NEGATIVE) 11/18/19 03:50 Urine Glucose (UA) NEGATIVE mg/dL (NEGATIVE) 11/18/19 03:50 Urine Ketones TRACE mg/dL (NEGATIVE) H 11/18/19 03:50 Urine Blood NEGATIVE (NEGATIVE) 11/18/19 03:50 Urine Nitrite NEGATIVE (NEGATIVE) 11/18/19 03:50 Urine Bilirubin NEGATIVE (NEGATIVE) 11/18/19 03:50 Urine Urobilinogen NEGATIVE mg/dL (<2.0) 11/18/19 03:50 Ur Leukocyte Esterase NEGATIVE (NEGATIVE) 11/18/19 03:50 Urine WBC (Auto) 0 /HPF 11/18/19 03:50 Urine RBC (Auto) 0 /HPF 11/18/19 03:50 U Hyaline Cast (Auto) 4 /LPF 11/18/19 03:50 Urine Bacteria (Auto) TRACE /HPF 11/18/19 03:50 Urine Mucus (Auto) RARE /LPF 11/18/19 03:50 Urine Ascorbic Acid NEGATIVE (NEGATIVE) 11/18/19 03:50 COVID-19 Source NASOPHARYNGEAL 11/29/19 17:15 COVID-19 (DINORAH) NOT DETECTED 11/29/19 17:15 11/18/19 11/21/19 11/27/19 00:23 12:35 12:20 Troponin I 0.015 0.013 < 0.012 Impressions: Chest X-Ray 11/17/19 23:04 IMPRESSION: No acute cardiopulmonary process copyright 2011 [employer]- All Rights Reserved Head CT 11/17/19 23:04 IMPRESSION: 1. No acute intracranial findings. 2. Chronic ischemic changes as on prior exam. KUB X-Ray 11/19/19 14:43 IMPRESSION: Nonspecific bowel gas pattern. No dilated loops identified. Moderate constipation. Chest X-Ray 11/21/19 12:09 IMPRESSION: Mild left basilar opacities which may represent atelectasis or developing airspace disease. Chest X-Ray 11/24/19 21:25 IMPRESSION: No evidence of acute cardiopulmonary disease. KUB X-Ray 11/24/19 21:25 IMPRESSION: 1. Proximal colonic fecal retention as well as gaseous distention of the colon. 2. No small bowel distention. Stroke Is this a Stroke Patient?: No Acute Heart Failure - Is this a Heart Failure Patient?: No
== END 2019-12-02 15:32 | DRG 309 ==
LOC: ER 22:31 → EH 11-27 15:46 → 4S 11-27 18:24
PROVIDERS: ADMIT Internal Medicine; ATTEND Hospitalist
DX: I48.19 Other persistent atrial fibrillation (principal); F03.91 Unspecified dementia, unspecified severity, with behavioral disturbance; I10 Essential (primary) hypertension; I25.10 Atherosclerotic heart disease of native coronary artery without angina pectoris; E11.9 Type 2 diabetes mellitus without complications; E78.5 Hyperlipidemia, unspecified; B35.1 Tinea unguium; K59.00 Constipation, unspecified; I25.2 Old myocardial infarction; Z89.511 Acquired absence of right leg below knee; Z86.73 Personal history of transient ischemic attack (TIA), and cerebral infarction without residual deficits; Z20.828 Contact with and (suspected) exposure to other viral communicable diseases
CPT/HCPCS: 36415; 70450; 71045; 80048; 80053; 81001; 82962; 83735; 84484; 85025; 85027; 87635; 93005; 93010; 93306; C9803; J1630; J1650; J1815; J3490

== ENCOUNTER 2020-04-08 18:01 | Inpatient (IN) | payer MEDICARE ==
[2020-04-08] MEDS ORDERED: NYSTATIN/TRIAMCIN CREAM 15 GM TP ONE (18:33)
--- NOTE | 2020-04-08 18:33 | ER Document Report ---
ED GI Bleed / Rectal Pain - General Stated Complaint: POSSIBLE GI BLEED Time Seen by Provider: 04/08/20 18:10 Primary Care Provider: CLARY EMERSON MD [Primary Care Provider] - Follow up as needed Notes: Patient is a 79-year-old male with a history of atrial fibrillation, currently on Eliquis who presents emergency department for positive Hemoccult at the half-way today. Patient is a [facility] patient. He has had diarrhea for the past 3 days. According to EMS, the patient was not acting his normal self according to the staff at [facility]. Patient only complaint is of his left heel wound. Patient is unable to give any significant medical history. He has a history of dementia. States that he does have some lightheadedness. Denies any dizziness. TRAVEL OUTSIDE OF THE [place] IN LAST 30 DAYS: No - Related Data Allergies/Adverse Reactions: No Known Allergies Allergy (Verified 06/30/18 11:52) Past Medical History - General Information source: Transfer Record, Emergency Med Personnel - Social History Smoking Status: Unknown if Ever Smoked Family History: Other - Cannot obtain due to mental status - Past Medical History Cardiac Medical History: Reports: Hx Heart Attack, Hx Hypercholesterolemia, Hx Hypertension - WELL CONTROLLED Pulmonary Medical History: Denies: Hx Asthma Neurological Medical History: Reports: Hx Cerebrovascular Accident. Denies: Hx Seizures Endocrine Medical History: Reports: Hx Diabetes Mellitus Type 2 Renal/ Medical History: Denies: Hx Peritoneal Dialysis GI Medical History: Denies: Hx Hepatitis, Hx Hiatal Hernia, Hx Ulcer Psychiatric Medical History: Denies: Hx Depression Infectious Medical History: Denies: Hx Hepatitis Past Surgical History: Denies: Hx Open Heart Surgery, Hx Pacemaker - Immunizations Hx Diphtheria, Pertussis, Tetanus Vaccination: Yes Review of Systems - Review of Systems -: Yes ROS unobtainable due to patient's medical condition Physical Exam - Vital signs Vitals: Temp 97.8 F 04/08/20 18:31 - Notes Notes: PHYSICAL EXAMINATION: GENERAL: Appears well, healthy, well-nourished, no acute distress. HEAD: Normocephalic, atraumatic. EYES: PERRL, conjunctiva normal, all extraocular movements intact, sclera nonicteric ENT: Moist mucous membranes. NECK: Supple, no noticeable swelling, redness, rash. Normal range of motion. LUNGS: Equal breath sounds bilaterally and clear to auscultation. No wheezes rales or rhonchi. CARDIOVASCULAR: S1-S2, regular rate, regular rhythm. Radial pulses 2+, normal. ABDOMEN: Normoactive bowel sounds. Soft, nontender, no guarding, no rebound tenderness, and no masses palpated. EXTREMITIES: Stiff. Right BKA. Left great toe amputation. NEUROLOGICAL: Oriented to person and place. PSYCH: Normal mood, normal affect. SKIN: Excoriation noted to the periarea. Stage II decubitus ulcer at coccyx. Course - Re-evaluation Re-evalutation: 04/08/20 18:33 Rectal exam done with NICK Liang at bedside. Occult stool was positive. Perineal area very excoriated. 04/08/20 20:31 Hematology shows a leukocytosis of 16,500 with a left shift of 83% neutrophils. Hemoglobin is stable at 11.1. Chemistries show a creatinine of 1.41, which is slightly higher than the patient's normal. A liter of IV fluids were ordered. Foot x-ray shows acute versus chronic osteomyelitis. Recommend MRI. This was ordered. This will most likely be done in the morning. I spoke with Dr. Salazar, the hospitalist. Patient will be admitted to medical floor. I then spoke with Dr. Toro, this liters list on-call. He will evaluate the patient. - Vital Signs Vital signs: Temp Pulse Resp BP Pulse Ox 97.8 F 96 18 92/68 L 95 04/08/20 18:40 04/08/20 18:40 04/08/20 19:33 04/08/20 19:49 04/08/20 18:40 - Laboratory Results Result Diagrams: 04/08/20 19:03 04/08/20 19:03 Laboratory Results Interpreted: 04/08/20 04/08/20 19:03 19:03 WBC 16.5 H RBC 3.90 L Hgb 11.1 L Hct 33.6 L RDW 16.0 H Lymph % (Auto) 10.4 L Absolute Neuts (auto) 13.7 H Seg Neutrophils % 83.0 H BUN 68 H Creatinine 1.41 H Est GFR ( Amer) 59 L Est GFR (MDRD) Non-Af 48 L Glucose 301 H ALT 51 H Albumin 3.1 L Critical Laboratory Results Reviewed: No Critical Results - Radiology Results Critical Radiology Results Reviewed: No Critical Results Discharge - Discharge Clinical Impression: GI bleed Qualifiers: GI bleed type/associated pathology: unspecified gastrointestinal hemorrhage type Qualified Code(s): K92.2 - Gastrointestinal hemorrhage, unspecified Osteomyelitis Qualifiers: Osteomyelitis type: unspecified type Osteomyelitis location: foot Laterality: left Qualified Code(s): M86.9 - Osteomyelitis, unspecified Condition: Stable Disposition: ADMITTED INPATIENT Admitting Provider: Martin (Hospitalist) Unit Admitted: Medical Floor Referrals: CLARY EMERSON MD [Primary Care Provider] - Follow up as needed
--- NOTE | 2020-04-08 19:19 | RADIOLOGY REPORT (SQ) ---
EXAM DESCRIPTION: FOOT LEFT COMPLETE IMAGES COMPLETED DATE/TIME: 04/08/2020 5:45 pm REASON FOR STUDY: eval osteomylitis; foot wound . COMPARISON: Left foot radiograph, 06/01/2014 NUMBER OF VIEWS: Three views. TECHNIQUE: AP, lateral and oblique radiographic images acquired of the left foot. LIMITATIONS: None. FINDINGS: MINERALIZATION: Osteopenia. BONES: There is amputation of the distal phalanges of the 1st digit. Mildly sclerotic appearance of the distal metatarsal without metatarsal head collapse. No lytic or blastic bone lesion. JOINTS: No effusions. SOFT TISSUES: There is soft tissue swelling over the 1st digit metatarsal head with subcutaneous gas. Vascular calcifications. OTHER: No other significant finding. IMPRESSION: Soft tissue swelling with subcutaneous gas overlying the 1st digit metatarsal head. Mil d sclerotic appearance of the metatarsal head with no destructive features may represent acute or chr onic osteomyelitis. Clinical correlation recommended. MRI may provide additional information as cli nically indicated. TECHNICAL DOCUMENTATION: JOB ID: [id number] 2010 [employer]- All Rights Reserved Reading location - IP/workstation name: [email or web address]
[2020-04-08 19:27] LABS: ABSOLUTE LYMPHOCYTES (AUTO) 1.7 10^3/uL (0.5-4.7); ABSOLUTE MONOCYTES (AUTO) 1.1 10^3/uL (0.1-1.4); ABSOLUTE NEUT (AUTO) 13.7 10^3/uL (1.7-8.2); BASOPHILS % (AUTO) 0.1 % (0-2); HEMATOCRIT 33.6 % (37.9-51.0); HEMOGLOBIN 11.1 g/dL (13.5-17.0); LYMPHOCYTES % (AUTO) 10.4 % (13-45); MEAN CORPUSCULAR HEMOGLOBIN 28.4 pg (27.0-33.4); MEAN CORPUSCULAR VOLUME 86 fl (80-97); MONOCYTES % (AUTO) 6.5 % (3-13); PLATELET COUNT 403 10^3/uL (150-450); TOTAL CELLS COUNTED % (AUTO) 100 %; WHITE BLOOD COUNT 16.5 10^3/uL (4.0-10.5)
[2020-04-08 19:50] LABS: ALBUMIN 3.1 g/dL (3.5-5.0); ALKALINE PHOSPHATASE 77 U/L (38-126); ANION GAP 10 (5-19); ASPARTATE AMINO TRANSFERASE 40 U/L (17-59); BILIRUBIN,DIRECT 0.3 mg/dL (0.0-0.4); BILIRUBIN,TOTAL 0.7 mg/dL (0.2-1.3); BLOOD UREA NITROGEN 68 mg/dL (7-20); CALCIUM 8.7 mg/dL (8.4-10.2); CARBON DIOXIDE 26 mmol/L (22-30); CHLORIDE 103 mmol/L (98-107); GLUCOSE 301 mg/dL (75-110); POTASSIUM 4.4 mmol/L (3.6-5.0); TOTAL PROTEIN 6.6 g/dL (6.3-8.2)
[2020-04-08] MEDS ORDERED: VANCOMYCIN HCL INJ 1000 MG VIAL IV ONE (19:56)
[2020-04-08] MEDS ORDERED: NORMAL SALINE 1000 ML 1,000 ML IV ONE (19:57)
--- NOTE | 2020-04-08 21:46 | PDOC CONSULTATION ---
Consultation Consult Date: 04/08/20 Provider Consulted: MAYUR BRAY Consult reason:: Left foot metatarsal head osteomyelitis History of Present Illness Admission Date/PCP: 04/08/20 20:40 CLARY EMERSON MD History of Present Illness: DORA OROZCO is a 79 year old male, demented, shelter resident, with multiple medical problems, with atrial fibrillation on Eliquis, admitted from the emergency room because of diarrhea, heme positive stools, and poorly appearing left foot first toe amputation site. An x-ray of the left foot has been done revealing osteomyelitis of the distal head of the left first metatarsal bone. Also, the patient has diarrhea with a past history of C. difficile infection in February 2020 and has current heme positive stools. His H&H is currently 11 and 33, respectively compared to 10 and 29, respectively in December 2019. Past Medical History Cardiac Medical History: Reports: Myocardial Infarction, Hyperlipidema, H ypertension - WELL CONTROLLED Pulmonary Medical History: Denies: Asthma Neurological Medical History: Denies: Seizures Endocrine Medical History: Reports: Diabetes Mellitus Type 2 GI Medical History: Denies: Hepatitis, Hiatal Hernia Psychiatric Medical History: Denies: Depression Hematology: Denies: Anemia, Sickle Cell Disease Past Surgical History Past Surgical History: Denies: Pacemaker Social History Smoking Status: Unknown if Ever Smoked Frequency of Alcohol Use: Rare Hx Recreational Drug Use: No Drugs: None Hx Prescription Drug Abuse: No Family History Family History: None, Reviewed & Not Pertinent, Other - Cannot obtain due to mental status Parental Family History Reviewed: No Children Family History Reviewed: No Sibling(s) Family History Reviewed.: No Medication/Allergy Home Medications: Metoprolol Tartrate [Lopressor 25 mg Tablet] 25 mg PO Q12 11/18/19 Pravastatin Sodium 40 mg PO DAILY 11/18/19 Acetaminophen [Tylenol 325 mg Tablet] 650 mg PO Q4HP PRN tablet 12/02/19 Buspirone HCl [Buspar 10 mg Tablet] 5 mg PO BID tablet 12/02/19 Glimepiride [Amaryl 4 mg Tablet] 4 mg PO BID tablet 12/02/19 Insulin Lispro [Humalog Insulin (Lispro) 100 unit/mL] 0 - 12 unit SUBCUT ACHS unit 12/02/19 Ipratropium/Albuterol Sulfate [Duoneb 3 ml Ampul] 3 ml NEB RTQ8HP PRN vial.neb 12/02/19 Isosorbide Mononitrate [Ismo 20 mg Tablet] 10 mg PO TID tablet 12/02/19 Lisinopril [Prinivil 5 mg Tablet] 2.5 mg PO DAILY tablet 12/02/19 Nitroglycerin [Nitrostat 0.4 mg (1/150 Gr) Tabs 25/Bottle] 1 tab SL Q5MP PRN bottle 12/02/19 Risperidone [Risperdal 0.25 mg Tablet] 0.25 mg PO BID tablet 12/02/19 Allergies/Adverse Reactions: No Known Allergies Allergy (Verified 06/30/18 11:52) Physical Exam Vital Signs: Temp Pulse Resp BP Pulse Ox 97.8 F 96 18 92/68 L 95 04/08/20 18:40 04/08/20 18:40 04/08/20 19:33 04/08/20 19:49 04/08/20 18:40 Intake & Output 04/07/20 04/08/20 04/09/20 06:59 06:59 06:59 Weight 65.2 kg General appearance: PRESENT: disheveled, hard of hearing, mild distress, thin, other - The patient appeared in general poor conditions Head exam: PRESENT: atraumatic, normocephalic Eye exam: PRESENT: EOMI Mouth exam: PRESENT: dry mucosa, moist, neck supple Teeth exam: PRESENT: edentulous, poor dentation Neck exam: PRESENT: full ROM Respiratory exam: PRESENT: clear to auscultation noé Cardiovascular exam: PRESENT: RRR GI/Abdominal exam: PRESENT: soft Extremities exam: PRESENT: other - Stiffening of all extremities; left foot = necrotic skin coveringdistal metatarsal head following great toe amputation Neurological exam: PRESENT: altered Psychiatric exam: PRESENT: depressed, flat affect Results Laboratory Results: 04/08/20 19:03 04/08/20 19:03 04/08/20 04/08/20 19:03 19:03 WBC 16.5 H RBC 3.90 L Hgb 11.1 L Hct 33.6 L MCV 86 MCH 28.4 MCHC 33.0 RDW 16.0 H Plt Count 403 Seg Neutrophils % 83.0 H Sodium 139.2 Potassium 4.4 Chloride 103 Carbon Dioxide 26 Anion Gap 10 BUN 68 H Creatinine 1.41 H Est GFR ( Amer) 59 L Glucose 301 H Calcium 8.7 Total Bilirubin 0.7 AST 40 Alkaline Phosphatase 77 Total Protein 6.6 Albumin 3.1 L Impressions: Foot X-Ray 04/08/20 18:29 IMPRESSION: Soft tissue swelling with subcutaneous gas overlying the 1st digit metatarsal head. Mild sclerotic appearance of the metatarsal head with no nilton tructive features may represent acute or chronic osteomyelitis. Clinical correlation recommended. MRI may provide additional information as clinically indicated. Assessment & Plan - Diagnosis (2) Osteomyelitis Qualifiers: Osteomyelitis type: unspecified type Osteomyelitis location: foot Laterality: left Qualified Code(s): M86.9 - Osteomyelitis, unspecified Is this a current diagnosis for this admission?: Yes (3) Advanced dementia Is this a current diagnosis for this admission?: Yes (4) Atrial fibrillation, persistent Is this a current diagnosis for this admission?: Yes - Plan Summary Plan Summary: Assessment: 79-year-old male with advanced dementia in poor general conditions, shelter resident left foot = necrotic skin covering distal metatarsal head following great toe amputation Osteomyelitis of the distal head of the left first metatarsal bone per plain x- ray tonight Diarrhea, with recent history of C. difficilis in February 2020 Heme positive stools = current H&H is 11 and 33, respectively very similar to the H&H in January 16, 2010 10 and 29, respectively Plan: The patient appears to be in very poor mental and physical general conditions To treat his left foot first metatarsal distal head osteomyelitis, he will probably need to undergo a below-knee amputation under general or spinal anesthesia. However, I do not believe that the patient will tolerate the BKA due to his poor general status because of the risk of poor healing and chronic BKA wound; in addition, I believe that the patient will not benefit from such a procedure as the BKA will not improve his quality of life. I strongly recommend the family consider placing the patient in hospice care environment for comfort care only. I do not recommend any procedure as the patient with no benefit from it. I will sign off. Please call me with questions
[2020-04-08] MEDS ORDERED: NYSTATIN CREAM 15 GM ONE (22:02)
[2020-04-08] MEDS ORDERED: ONDANSETRON HCL INJ/PF 4 MG/2 ML SDV IV PRN (22:22)
[2020-04-08] MEDS ORDERED: ONDANSETRON 4 MG TAB.RAPDIS PO PRN (22:22)
[2020-04-08] MEDS ORDERED: ACETAMINOPHEN 650 MG SUPP.RECT PR PRN (22:22)
[2020-04-08] MEDS ORDERED: ACETAMINOPHEN 325 MG TABLET PO PRN (22:22)
[2020-04-08] MEDS: INSULIN LISPRO 100 UNIT/ML 3 ML VIAL SUBCUT SCH (22:36)
--- NOTE | 2020-04-08 22:38 | EKG REPORT ---
SEVERITY:- ABNORMAL ECG - ATRIAL FIBRILLATION, V-RATE 81-116 RBBB AND LPFB PROBABLE INFERIOR INFARCT, AGE INDETERMINATE : Confirmed by: Kevin Amaya 08-Apr-2020 22:38:01
[2020-04-08] MEDS ORDERED: IPRATROPIUM/ALBUTEROL 0.5-2.5 MG/3 ML AMPUL NEB PRN (22:40)
[2020-04-08] MEDS ORDERED: CEFEPIME 2 GM/D5W RTU 2 GM/50 ML RTUPB IV SCH (22:45)
--- NOTE | 2020-04-08 22:54 | PDOC H&P ---
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 difficile who presents to the ED with a 3-day history of persistent diarrhea and complaints of left lower extremity pain. On arrival to ED, patient underwent x-ray of left foot which showed likely osteomyelitis with soft tissue inflammation. Patient underwent toe amputation on left foot last November 2019 and patient was sent to [facility] for rehab and wound care. Per son whom I spoke at great length with on the phone today, patient was not well cared for there and he has gotten progressively worse both in his health and mentation. Patient is elevated WBC is 16.5, elevated creatinine at 1.41, and is moderately hypotensive. He appears emaciated with severe diffuse muscle wasting consistent with severe protein calorie malnutrition. I explained in detail to the son that the patient is unlikely to survive another 6 months due to his progressive dementia and inability to maintain his nutrition due to this disease. The patient is an extremely poor surgical candidate and I do not believe he has a good chance of surviving a lower extremity amputation at this point. I strongly recommended the patient be considered for hospice as I believe from my discussion with the patient's son this is what the patient would want if he could tell us that today. The son agrees that the patient deserves comfort and dignity and he would like to speak with case management tomorrow about hospice options at a nursing facility other than [facility]. Patient will be admitted with broad-spectrum antibiotics and otherwise aggressive medical care, however patient son agrees patient should not undergo limb amp utation due to high likelihood he will not survive. Son also would like the patient to be DNR/DNI. Also of note, patient has a mild drop in his hemoglobin from previous values in ED checked a Hemoccult which was positive. Patient is chronically on Eliquis for his A. fib and this will be held. Past Medical History Cardiac Medical History: Reports: Myocardial Infarction, Hyperlipidema, Hypertension - WELL CONTROLLED Pulmonary Medical History: Denies: Asthma Neurological Medical History: Denies: Seizures Endocrine Medical History: Reports: Diabetes Mellitus Type 2 GI Medical History: Denies: Hepatitis, Hiatal Hernia Psychiatric Medical History: Denies: Depression Hematology: Denies: Anemia, Sickle Cell Disease Past Surgical History Past Surgical History: Denies: Pacemaker Social History Information Source: Patient, Relative, POA - Power of Installment Agent, Emergency Med Personnel Lives with: Half-Way Smoking Status: Unknown if Ever Smoked Frequency of Alcohol Use: Rare Hx Recreational Drug Use: No Drugs: None Hx Prescription Drug Abuse: No - Advance Directive Resuscitation Status: Do Not Resuscitate Surrogate healthcare decision maker:: Admitting diagnosis: Left foot osteomyelitis All aspects of code status discussed with patient/POA including cardioversion, chest compressions, and intubation and the patient/POA indicated they wish to be DNR/DNI MPOA is designated as: Son, Theodore OrozcoJr. Time spent: Greater than 16 minutes Family History Family History: None, Reviewed & Not Pertinent, Other - Cannot obtain due to mental status Parental Family History Reviewed: Yes Children Family History Reviewed: Yes Sibling(s) Family History Reviewed.: Yes Medication/Allergy Home Medications: Metoprolol Tartrate [Lopressor 25 mg Tablet] 25 mg PO Q12 11/18/19 Pravastatin Sodium 40 mg PO DAILY 11/18/19 Acetaminophen [Tylenol 325 mg Tablet] 650 mg PO Q4HP PRN tablet 12/02/19 Buspirone HCl [Buspar 10 mg Tablet] 5 mg PO BID tablet 12/02/19 Glimepiride [Amaryl 4 mg Tablet] 4 mg PO BID tablet 12/02/19 Insulin Lispro [Humalog Insulin (Lispro) 100 unit/mL] 0 - 12 unit SUBCUT ACHS unit 12/02/19 Ipratropium/Albuterol Sulfate [Duoneb 3 ml Ampul] 3 ml NEB RTQ8HP PRN vial.neb 12/02/19 Isosorbide Mononitrate [Ismo 20 mg Tablet] 10 mg PO TID tablet 12/02/19 Lisinopril [Prinivil 5 mg Tablet] 2.5 mg PO DAILY tablet 12/02/19 Nitroglycerin [Nitrostat 0.4 mg (1/150 Gr) Tabs 25/Bottle] 1 tab SL Q5MP PRN bottle 12/02/19 Risperidone [Risperdal 0.25 mg Tablet] 0.25 mg PO BID tablet 12/02/19 Allergies/Adverse Reactions: No Known Allergies Allergy (Verified 06/30/18 11:52) Review of Systems All systems: reviewed and no additional remarkable complaints except as stated - Per HPI otherwise negative Physical Exam Vital Signs: Temp Pulse Resp BP Pulse Ox 98.2 F 96 18 92/68 L 98 04/08/20 22:00 04/08/20 18:40 04/08/20 22:00 04/08/20 19:49 04/08/20 22:00 Intake & Output 04/07/20 04/08/20 04/09/20 06:59 06:59 06:59 Weight 65.2 kg Exam: General appearance: PRESENT: no acute distress, emaciated with severe diffuse muscle wasting, appears generally confused which is likely baseline Head exam: PRESENT: atraumatic, normocephalic Eye exam: PRESENT: conjunctiva pink. ABSENT: scleral icterus Mouth exam: PRESENT: Dry Respiratory exam: PRESENT: clear to auscultation noé. ABSENT: rales, rhonchi, wheezes Cardiovascular exam: PRESENT: RRR. ABSENT: diastolic murmur, rubs, systolic murmur GI/Abdominal exam: PRESENT: normal bowel sounds, soft. ABSENT: distended, guarding, mass, organolmegaly, rebound, tenderness Neurological exam: PRESENT: alert, awake, not oriented at all Psychiatric exam: PRESENT: appropriate affect, normal mood Skin exam: PRESENT: dry, intact, warm; RLE previous amputation noted, left lateral aspect of foot with open ulceration which is tender and foul-smelling Results Laboratory Results: 04/08/20 19:03 04/08/20 19:03 04/08/20 04/08/20 04/08/20 19:03 19:03 21:09 WBC 16.5 H RBC 3.90 L Hgb 11.1 L Hct 33.6 L MCV 86 MCH 28.4 MCHC 33.0 RDW 16.0 H Plt Count 403 Seg Neutrophils % 83.0 H Sodium 139.2 Potassium 4.4 Chloride 103 Carbon Dioxide 26 Anion Gap 10 BUN 68 H Creatinine 1.41 H Est GFR ( Amer) 59 L Glucose 301 H Lactic Acid 1.9 Calcium 8.7 Total Bilirubin 0.7 AST 40 Alkaline Phosphatase 77 Total Protein 6.6 Albumin 3.1 L Impressions: Foot X-Ray 04/08/20 18:29 IMPRESSION: Soft tissue swelling with subcutaneous gas overlying the 1st digit metatarsal head. Mild sclerotic appearance of the metatarsal head with no destructive features may represent acute or chronic osteomyelitis. Clinical correlation recommended. MRI may provide additional information as clinically indicated. Assessment and Plan - Diagnosis (1) Foot osteomyelitis, left Qualifiers: Osteomyelitis type: unspecified type Qualified Code(s): M86.9 - Osteo myelitis, unspecified Is this a current diagnosis for this admission?: Yes Plan: Likely due to diabetic foot ulcer, previous admission for toe amputation Vancomycin/cefepime Extremely poor surgical candidate, son does not wish to proceed with surgery and surgeons are in agreement Pain management Recommend hospice Wound care (2) Encounter for hospice care Is this a current diagnosis for this admission?: Yes Plan: Case management consulted for hospice Son does not want patient to go back to [facility] (3) 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 intake IV fluids Trend BMP (5) Atrial fibrillation, persistent Is this a current diagnosis for this admission?: Yes Plan: Chronically on Eliquis which will be held due to GI bleed Rate controlled (6) Chronic anticoagulation Is this a current diagnosis for this admission?: Yes Plan: Chronically on Eliquis which will be held due to GI bleed (7) DM2 (diabetes mellitus, type 2) Qualifiers: Diabetes mellitus watermelon inspector insulin use: without mcfp use Diabetes mellitus complication status: with kidney complications Diabetes mellitus complication detail: with chronic kidney disease Chronic kidney disease stage: stage 2 (mild) Qualified Code(s): E11.22 - Type 2 diabetes mellitus with diabetic chronic kidney disease; N18.2 - Chronic kidney disease, stage 2 (mild) Is this a current diagnosis for this admission?: Yes Plan: T2DM -accucheks, sliding scale insulin -long acting insulin indicated for HgA1C of 10 or greater -outpt FU with PCP (8) GI bleed Qualifiers: GI bleed type/associated pathology: unspecified gastrointestinal hemorrhage type Qualified Code(s): K92.2 - Gastrointestinal hemorrhage, unspecified Is this a current diagnosis for this admission?: Yes Plan: Poor candidate for any procedural intervention Hold Eliquis Trend CBC Transfuse for hemoglobin less than 7 - Time Time Spent with patient: 35 or more minutes Medications reviewed and adjusted accordingly: Yes Anticipated Discharge Disposition: Hospice Center Anticipated Discharge Timeframe: within 48 hours - Inpatient Certification Based on my medical assessment, after consideration of the patient's comorbidities, presenting symptoms, or acuity I expect that the services needed warrant INPATIENT care.: Yes I certify that my determination is in accordance with my understanding of Medicare's requirements for reasonable and necessary INPATIENT services [42 CFR 412.3e].: Yes Medical Necessity: Significant Comorbidiites Make Outpatient Treatment Too Risky, Need Close Monitoring Due to Risk of Patient Decompensation, Need For IV Fluids, Need for IV Antibiotics, Risk of Complication if Not Cared For in Hospital, Risk of Diagnosis Which Will Require Inpatient Eval/Care/Monitoring
[2020-04-09] MEDS: RINGERS SOLUTION,LACTATED 1,000 ML IV PRN ×2 (00:08→18:00)
[2020-04-09] MEDS ORDERED: RINGERS SOLUTION,LACTATED 500 ML IV ONE (00:15)
[2020-04-09 07:08] LABS: ABSOLUTE LYMPHOCYTES (AUTO) 1.4 10^3/uL (0.5-4.7); ABSOLUTE MONOCYTES (AUTO) 0.9 10^3/uL (0.1-1.4); ABSOLUTE NEUT (AUTO) 11.5 10^3/uL (1.7-8.2); BASOPHILS % (AUTO) 0.1 % (0-2); HEMATOCRIT 29.1 % (37.9-51.0); HEMOGLOBIN 9.5 g/dL (13.5-17.0); LYMPHOCYTES % (AUTO) 10.1 % (13-45); MEAN CORPUSCULAR HEMOGLOBIN 28.4 pg (27.0-33.4); MEAN CORPUSCULAR HGB CONC 32.9 g/dL (32.0-36.0); MEAN CORPUSCULAR VOLUME 87 fl (80-97); MONOCYTES % (AUTO) 6.7 % (3-13); PLATELET COUNT 318 10^3/uL (150-450); RED BLOOD COUNT 3.36 10^6/uL (4.35-5.55); RED CELL DISTRIBUTION WIDTH 15.7 % (11.5-14.0); SEGMENTED NEUTROPHILS % (AUTO) 83.1 % (42-78); TOTAL CELLS COUNTED % (AUTO) 100 %; WHITE BLOOD COUNT 13.9 10^3/uL (4.0-10.5)
[2020-04-09 07:48] LABS: ANION GAP 12 (5-19); BLOOD UREA NITROGEN 71 mg/dL (7-20); CALCIUM 8.1 mg/dL (8.4-10.2); CARBON DIOXIDE 20 mmol/L (22-30); CHLORIDE 107 mmol/L (98-107); GLUCOSE 240 mg/dL (75-110); PHOSPHORUS 3.8 mg/dL (2.5-4.5); POTASSIUM 3.9 mmol/L (3.6-5.0)
[2020-04-09] MEDS: BUSPIRONE HCL 10 MG TABLET PO SCH ×2 (09:12→17:54)
[2020-04-09] MEDS: RISPERIDONE 0.25 MG TABLET PO SCH ×2 (09:12→17:53)
[2020-04-09] MEDS: INSULIN LISPRO 100 UNIT/ML 3 ML VIAL SUBCUT SCH ×4 (09:12→22:08)
[2020-04-09] MEDS: DOCUSATE SODIUM 100 MG CAPSULE PO SCH (09:12)
[2020-04-09] MEDS: CEFEPIME HCL 2 GM in DEXTROSE 5%-WATER 50 ML IV SCH ×2 (09:14→22:14)
[2020-04-09] MEDS ORDERED: VANCOMYCIN HCL INJ 1000 MG VIAL IV SCH (10:00)
[2020-04-09 10:01] LABS: C DIFFICILE GDH POSITIVE (NEGATIVE)
--- NOTE | 2020-04-09 11:00 | PDOC PROGRESS REPORT ---
Subjective Date:: 04/09/20 Subjective:: Patient does not complain of any pain during encounter. He is certainly very co gnitively impaired and not able to give much history Reason For Visit: ACUTE ON CHRONIC LEFT FOOT OSTEOMYELITIS, Physical Exam Vital Signs: Temp Pulse Resp BP Pulse Ox 98.1 F 58 L 18 92/50 L 83 L 04/09/20 08:37 04/09/20 08:37 04/09/20 08:37 04/09/20 08:37 04/09/20 08:37 Intake & Output 04/08/20 04/09/20 04/10/20 06:59 06:59 06:59 Intake Total 1612 Balance 1612 Weight 62 kg General appearance: PRESENT: no acute distress, cooperative Respiratory exam: PRESENT: symmetrical, unlabored. ABSENT: accessory muscle use, retraction, tachypnea Cardiovascular exam: PRESENT: RRR, +S1, +S2. ABSENT: tachycardia GI/Abdominal exam: PRESENT: soft. ABSENT: rebound, rigid, tenderness Extremities exam: PRESENT: other - Necrotic toe stump in left foot. Right BKA Neurological exam: PRESENT: alert, awake, oriented to person. ABSENT: oriented to place, oriented to time, oriented to situation Psychiatric exam: ABSENT: agitated, anxious Results Laboratory Results: 04/09/20 06:18 04/09/20 06:18 04/08/20 04/08/20 04/08/20 19:03 19:03 21:09 WBC 16.5 H RBC 3.90 L Hgb 11.1 L Hct 33.6 L MCV 86 MCH 28.4 MCHC 33.0 RDW 16.0 H Plt Count 403 Seg Neutrophils % 83.0 H Sodium 139.2 Potassium 4.4 Chloride 103 Carbon Dioxide 26 Anion Gap 10 BUN 68 H Creatinine 1.41 H Est GFR ( Amer) 59 L Glucose 301 H Lactic Acid 1.9 Calcium 8.7 Phosphorus Magnesium Total Bilirubin 0.7 AST 40 Alkaline Phosphatase 77 Total Protein 6.6 Albumin 3.1 L TSH 04/09/20 04/09/20 04/09/20 06:18 06:18 06:18 WBC 13.9 H RBC 3.36 L Hgb 9.5 L Hct 29.1 L MCV 87 MCH 28.4 MCHC 32.9 RDW 15.7 H Plt Count 318 Seg Neutrophils % 83.1 H Sodium 139.3 Potassium 3.9 Chloride 107 Carbon Dioxide 20 L Anion Gap 12 BUN 71 H Creatinine 1.32 H Est GFR ( Amer) > 60 Glucose 240 H Lactic Acid Calcium 8.1 L Phosphorus 3.8 Magnesium 2.1 Total Bilirubin AST Alkaline Phosphatase Total Protein Albumin TSH 0.55 Impressions: Foot X-Ray 04/08/20 18:29 IMPRESSION: Soft tissue swelling with subcutaneous gas overlying the 1st digit metatarsal head. Mild sclerotic appearance of the metatarsal head with no destructive features may represent acute or chronic osteomyelitis. Clinical correlation recommended. MRI may provide additional information as clinically indicated. Assessment and Plan - Diagnosis (1) Foot osteomyelitis, left Qualifiers: Osteomyelitis type: unspecified type Qualified Code(s): M86.9 - Osteomyelitis, unspecified Is this a current diagnosis for this admission?: Yes (2) COVID-19 virus infection Is this a current diagnosis for this admission?: Yes (3) C. 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 Is this a current diagnosis for this admission?: Yes (9) Advanced dementia Is this a current diagnosis for this admission?: Yes (10) Atrial fibrillation, persistent Is this a current diagnosis for this admission?: Yes (11) DM2 (diabetes mellitus, type 2) Qualifiers: Diabetes mellitus intermediate insulin use: without intermediate use Diabetes mellitus complication status: with kidney complications Diabetes mellitus complication detail: with chronic kidney disease Chronic kidney disease stage: stage 2 (mild) Qualified Code(s): E11.22 - Type 2 diabetes mellitus with diabetic chronic kidney disease; N18.2 - Chronic kidney disease, stage 2 (mild) Is this a current diagnosis for this admission?: Yes - Plan Summary Summary: Patient is receiving IV fluids. C. difficile test has come back positive so initiated on vancomycin p.o. Also receiving broad-spectrum antibiotics for necrotic infection as well as osteomyelitis. Surgery has recommended hospice care which I agree with. Discussion was had between patient's son and project coach on admission and patient's son has agreed to hospice. Discharge planning consulted for placement at SNF with hospice services. We will start patient on morphine as needed for pain. Also noted patient tested positive for COVID-19. He is currently on room air but may need oxygen supplementation which we can provide. - Time Time Spent with patient: 15-24 minutes Anticipated Discharge Disposition: [facility] - SNFw/hospice Anticipated Discharge Timeframe: when bed available
[2020-04-09] MEDS: VANCOMYCIN HCL INJ 500 MG VIAL PO SCH ×2 (12:53→17:54)
[2020-04-09] MEDS ORDERED: VANCOMYCIN HCL 750 MG in DEXTROSE 5%-WATER 250 ML IV SCH (18:00)
[2020-04-09] MEDS ORDERED: NORMAL SALINE 1000 ML 1,000 ML IV ONE (18:37)
[2020-04-10] MEDS: VANCOMYCIN HCL INJ 500 MG VIAL PO SCH ×5 (01:27→18:39)
[2020-04-10 06:17] LABS: ABSOLUTE LYMPHOCYTES (AUTO) 1.6 10^3/uL (0.5-4.7); ABSOLUTE MONOCYTES (AUTO) 1.1 10^3/uL (0.1-1.4); ABSOLUTE NEUT (AUTO) 12.4 10^3/uL (1.7-8.2); HEMATOCRIT 30.8 % (37.9-51.0); HEMOGLOBIN 10.2 g/dL (13.5-17.0); LYMPHOCYTES % (AUTO) 10.5 % (13-45); MEAN CORPUSCULAR HEMOGLOBIN 28.4 pg (27.0-33.4); MEAN CORPUSCULAR HGB CONC 33.2 g/dL (32.0-36.0); MEAN CORPUSCULAR VOLUME 86 fl (80-97); MONOCYTES % (AUTO) 7.1 % (3-13); PLATELET COUNT 337 10^3/uL (150-450); RED BLOOD COUNT 3.59 10^6/uL (4.35-5.55); SEGMENTED NEUTROPHILS % (AUTO) 82.4 % (42-78); TOTAL CELLS COUNTED % (AUTO) 100 %; WHITE BLOOD COUNT 15.1 10^3/uL (4.0-10.5)
[2020-04-10 06:47] LABS: ANION GAP 14 (5-19); BLOOD UREA NITROGEN 65 mg/dL (7-20); CALCIUM 8.2 mg/dL (8.4-10.2); CARBON DIOXIDE 18 mmol/L (22-30); CHLORIDE 111 mmol/L (98-107); GLUCOSE 303 mg/dL (75-110); POTASSIUM 3.9 mmol/L (3.6-5.0)
[2020-04-10] MEDS: INSULIN LISPRO 100 UNIT/ML 3 ML VIAL SUBCUT SCH ×4 (12:28→22:11)
[2020-04-10] MEDS: RISPERIDONE 0.25 MG TABLET PO SCH ×2 (12:31→18:39)
[2020-04-10] MEDS: CEFEPIME HCL 2 GM in DEXTROSE 5%-WATER 50 ML IV SCH (12:31)
[2020-04-10] MEDS: BUSPIRONE HCL 10 MG TABLET PO SCH ×2 (12:31→18:39)
[2020-04-10] MEDS: DOCUSATE SODIUM 100 MG CAPSULE PO SCH (12:31)
[2020-04-10] MEDS: ALPRAZOLAM 0.5 MG TABLET PO PRN ×2 (13:30→18:39)
--- NOTE | 2020-04-10 17:36 | PDOC PROGRESS REPORT ---
Subjective Date:: 04/10/20 Subjective:: Poor historian does not give much subjective. Reason For Visit: ACUTE ON CHRONIC LEFT FOOT OSTEOMYELITIS, Physical Exam Vital Signs: Temp Pulse Resp BP Pulse Ox 98.1 F 132 H 19 108/54 L 92 04/10/20 11:41 04/10/20 14:00 04/10/20 11:41 04/10/20 11:41 04/10/20 11:41 Intake & Output 04/09/20 04/10/20 04/11/20 06:59 06:59 06:59 Intake Total 1612 1608 Balance 1612 1608 Weight 62 kg 59.4 kg General appearance: PRESENT: no acute distress, cooperative Respiratory exam: PRESENT: unlabored. ABSENT: accessory muscle use, retraction, tachypnea Cardiovascular exam: PRESENT: tachycardia. ABSENT: irregular rhythm GI/Abdominal exam: PRESENT: soft. ABSENT: tenderness Neurological exam: PRESENT: alert, awake Focused psych exam: PRESENT: internal stimuli Results Laboratory Results: 04/10/20 05:49 04/10/20 05:49 04/10/20 04/10/20 05:49 05:49 WBC 15.1 H RBC 3.59 L Hgb 10.2 L Hct 30.8 L MCV 86 MCH 28.4 MCHC 33.2 RDW 16.0 H Plt Count 337 Seg Neutrophils % 82.4 H Sodium 143.1 Potassium 3.9 Chloride 111 H Carbon Dioxide 18 L Anion Gap 14 BUN 65 H Creatinine 1.06 Est GFR ( Amer) > 60 Glucose 303 H Calcium 8.2 L Impressions: Foot X-Ray 04/08/20 18:29 IMPRESSION: Soft tissue swelling with subcutaneous gas overlying the 1st digit metatarsal head. Mild sclerotic appearance of the metatarsal head with no destructive features may represent acute or chronic osteomyelitis. Clinical correlation recommended. MRI may provide additional information as clinically indicated. Assessment and Plan - Diagnosis (1) Foot osteomyelitis, left Qualifiers: Osteomyelitis type: unspecified type Qualified Code(s): M86.9 - Osteomyelitis, unspecified Is this a current diagnosis for this admission?: Yes (2) COVID-19 virus infection Is this a current diagnosis for this admission?: Yes (3) C. 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 Is this a current diagnosis for this admission?: Yes (9) Advanced dementia Is this a current diagnosis for this admission?: Yes (10) Atrial fibrillation, persistent Is this a current diagnosis for this admission?: Yes (11) DM2 (diabetes mellitus, type 2) Qualifiers: Diabetes mellitus tin dipper insulin use: without tin dipper use Diabetes mellitus complication status: with kidney complications Diabetes mellitus complication detail: with chronic kidney disease Chronic kidney disease stage: stage 2 (mild) Qualified Code(s): E11.22 - Type 2 diabetes mellitus with diabetic chronic kidney disease; N18.2 - Chronic kidney disease, stage 2 (mild) Is this a current diagnosis for this admission?: Yes - Plan Summary Summary: Patient is receiving IV fluids. C. difficile test has come back positive so initiated on vancomycin p.o. Also receiving broad-spectrum antibiotics for necrotic infection as well as osteomyelitis. Surgery has recommended hospice care which I agree with. Discussion was had between patient's son and blanket washer on admission and patient's son has agreed to hospice. Discharge planning consulted for placement at SNF with hospice services. We will start patient on morphine as needed for pain. Also noted patient tested positive for COVID-19. He is currently on room air but may need oxygen supplementation which we can provide. 04/10/2020 Patient planned for hospice. We will switch antibiotics to p.o. Continue p.o. vancomycin. Plan to discharge tomorrow to SNF on hospice services. - Time Time Spent with patient: Less than 15 minutes Anticipated Discharge Disposition: Senior Living Facility - with Hospice Anticipated Discharge Timeframe: within 24 hours
[2020-04-10] MEDS: RINGERS SOLUTION,LACTATED 1,000 ML IV PRN (18:01)
[2020-04-10] MEDS: SULFAMETHOXAZOLE/TRIMETHOPRIM 800-160 MG TABLET PO SCH (22:12)
[2020-04-10] MEDS: AMOXICILLIN TR/POT CLAVULANATE 875-125 MG TAB PO SCH (22:12)
[2020-04-11] MEDS: VANCOMYCIN HCL INJ 500 MG VIAL PO SCH ×4 (00:53→17:55)
[2020-04-11] MEDS: MORPHINE SULFATE 10 MG/ML INJ IV PRN ×2 (01:34→05:37)
[2020-04-11] MEDS: RINGERS SOLUTION,LACTATED 1,000 ML IV PRN (02:02)
[2020-04-11] MEDS ORDERED: NORMAL SALINE 1000 ML 1,000 ML IV ONE (07:46)
--- NOTE | 2020-04-11 11:04 | PDOC TRANSFER SUMMARY ---
Impression - Admit/DC Date/PCP Admission Date/Primary Care Provider: 04/08/20 20:40 CLARY EMERSON MD Discharge Date: 04/11/20 - Discharge Diagnosis (1) Foot osteomyelitis, left Is this a current diagnosis for this admission?: Yes (2) Gangrene Is this a current diagnosis for this admission?: Yes (3) COVID-19 virus infection Is this a current diagnosis for this admission?: Yes (4) LUCIANO (acute kidney injury) Is this a current diagnosis for this admission?: Yes (5) C. 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 Is this a current diagnosis for this admission?: Yes (10) Advanced dementia Is this a current diagnosis for this admission?: Yes (11) Atrial fibrillation, persistent Is this a current diagnosis for this admission?: Yes (12) DM2 (diabetes mellitus, type 2) Is this a current diagnosis for this admission?: Yes - Additional Information Resuscitation Status: Do Not Resuscitate Referrals: CLARY EMERSON MD [Primary Care Provider] - Follow up as needed Prescriptions: Oxycodone HCl [Oxy-Ir 5 mg Tablet] 5 mg PO Q4HP PRN #6 tab PRN Reason: Alprazolam [Xanax] 1 mg PO TIDP PRN #8 PRN Reason: Home Medications: Isosorbide Mononitrate [Ismo 20 mg Tablet] 10 mg PO TID tablet 12/02/19 Acetaminophen [Tylenol 325 mg Tablet] 325 mg PO BID 04/09/20 Albuterol Sulfate [Proair HFA Inhalation Aerosol 8.5 gm MDI] 2 puff IH Q4 PRN 04/09/20 Alprazolam [Xanax] 1 mg PO TIDP PRN #8 04/11/20 Amoxicillin/Potassium Clav [Augmentin 875-125 Tablet] 1 tab PO Q12 7 Days #14 tablet 04/11/20 Docusate Sodium [Colace 100 mg Capsule] 100 mg PO DAILY capsule 04/11/20 Ondansetron [Zofran Odt 4 mg Tablet] 4 mg PO Q4HP PRN tab.rapdis 04/11/20 Oxycodone HCl [Oxy-Ir 5 mg Tablet] 5 mg PO Q4HP PRN #6 tab 04/11/20 Sulfamethoxazole/Trimethoprim [Septra-Ds 800-160 mg Tablet] 1 tab PO Q12 7 Days #14 tablet 04/11/20 Vancomycin HCl [Vancocin Inj 500 mg Vial] 125 mg PO Q6 7 Days #28 vial 04/11/20 History of Present Illiness History of Present Illness: According to admitting provider: DORA OROZCO is a 79 year old male with past medical history significant for severe Alzheimer's dementia, 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 difficile who presents to the ED with a 3-day history of persistent diarrhea and complaints of left lower extremity pain. On arrival to ED, patient underwent x-ray of left foot which showed likely osteomyelitis with soft tissue inflammation. Patient underwent toe amputation on left foot last November 2019 and patient was sent to [facility] for rehab and wound care. Per son whom I spoke at great length with on the phone today, patient was not well cared for there and he has gotten progressively worse both in his health and mentation. Patient is elevated WBC is 16.5, elevated creatinine at 1.41, and is moderately hypotensive. He appears emaciated with severe diffuse muscle wasting consistent with severe protein calorie malnutrition. I explained in detail to the son that the patient is unlikely to survive another 6 months due to his progressive dementia and inability to maintain his nutrition due to this disease. The patient is an extremely poor surgical candidate and I do not believe he has a good chance of surviving a lower extremity amputation at this point. I strongly recommended the patient be considered for hospice as I believe from my discussion with the patient's son this is what the patient would want if he could tell us that today. The son agrees that the patient deserves comfort and dignity and he would like to speak with case management tomorrow about hospice options at a nursing facility other than [facility]. Patient will be admitted with broad-spectrum antibiotics and otherwise aggressive medical care, however patient son agrees patient should not undergo limb amputation due to high likelihood he will not survive. Son also would like the patient to be DNR/DNI. Also of note, patient has a mild drop in his hemoglobin from previous values in ED checked a Hemoccult which was positive. Patient is chronically on Eliquis for his A. fib and this will be held. Hospital Course Hospital Course: Patient presented with notable gangrene toes in his left foot. Imaging shows osteomyelitis as well. Ultimately he requires amputation of the toe via surgery. He was evaluated by the surgeon and was deemed to be a poor surgical candidate due to his state. Surgery recommended hospice. He also tested positive for COVID-19. Currently still tolerating on room air. He is also notably positive for C. difficile colitis. Has been started on vancomycin which will continue for 7 more days to complete a 10-day course of treatment. We discussed his overall mental functioning and his poor physical state with his son who has decided the patient be made hospice which I agree with. Hospice care has been initiated. I will discharge patient with 7 days of broad-spectrum antibiotics to help with his infection but very likely ultimately his infection may still spread given the gangrene. He is being discharged on hospice care at [facility]. Physical Exam Vital Signs: Temp Pulse Resp BP Pulse Ox 98.1 F 117 H 20 93/55 L 94 04/11/20 04:27 04/11/20 04:27 04/11/20 04:27 04/11/20 04:27 04/11/20 04:27 Intake & Output 04/10/20 04/11/20 04/12/20 06:59 06:59 06:59 Intake Total 3608 1100 Output Total 1 Balance 3608 1099 Weight 59.4 kg 64 kg General appearance: PRESENT: no acute distress, cooperative Respiratory exam: PRESENT: unlabored. ABSENT: accessory muscle use, retraction Cardiovascular exam: PRESENT: irregular rhythm, +S1, +S2, tachycardia GI/Abdominal exam: PRESENT: soft. ABSENT: rebound, rigid, tenderness Extremities exam: PRESENT: other - gangrenous left toes Neurological exam: PRESENT: alert, awake, oriented to person. ABSENT: oriented to place, oriented to time, oriented to situation Results Laboratory Results: WBC 15.1 10^3/uL (4.0-10.5) H 04/10/20 05:49 RBC 3.59 10^6/uL (4.35-5.55) L 04/10/20 05:49 Hgb 10.2 g/dL (13.5-17.0) L 04/10/20 05:49 Hct 30.8 % (37.9-51.0) L 04/10/20 05:49 MCV 86 fl (80-97) 04/10/20 05:49 MCH 28.4 pg (27.0-33.4) 04/10/20 05:49 MCHC 33.2 g/dL (32.0-36.0) 04/10/20 05:49 RDW 16.0 % (11.5-14.0) H 04/10/20 05:49 Plt Count 337 10^3/uL (150-450) 04/10/20 05:49 Lymph % (Auto) 10.5 % (13-45) L 04/10/20 05:49 Otero % (Auto) 7.1 % (3-13) 04/10/20 05:49 Eos % (Auto) 0.0 % (0-6) 04/10/20 05:49 Baso % (Auto) 0.0 % (0-2) 04/10/20 05:49 Absolute Neuts (auto) 12.4 10^3/uL (1.7-8.2) H 04/10/20 05:49 Absolute Lymphs (auto) 1.6 10^3/uL (0.5-4.7) 04/10/20 05:49 Absolute Monos (auto) 1.1 10^3/uL (0.1-1.4) 04/10/20 05:49 Absolute Eos (auto) 0.0 10^3/uL (0.0-0.6) 04/10/20 05:49 Absolute Basos (auto) 0.0 10^3/uL (0.0-0.2) 04/10/20 05:49 Seg Neutrophils % 82.4 % (42-78) H 04/10/20 05:49 Sodium 143.1 mmol/L (137-145) 04/10/20 05:49 Potassium 3.9 mmol/L (3.6-5.0) 04/10/20 05:49 Chloride 111 mmol/L (98-107) H 04/10/20 05:49 Carbon Dioxide 18 mmol/L (22-30) L 04/10/20 05:49 Anion Gap 14 (5-19) 04/10/20 05:49 BUN 65 mg/dL (7-20) H 04/10/20 05:49 Creatinine 1.06 mg/dL (0.52-1.25) 04/10/20 05:49 Est GFR ( Amer) > 60 (>60) 04/10/20 05:49 Est GFR (MDRD) Non-Af > 60 (>60) 04/10/20 05:49 Glucose 303 mg/dL (75-110) H 04/10/20 05:49 POC Glucose 340 mg/dL (70-110) H 04/11/20 08:37 Lactic Acid 1.9 mmol/L (0.7-2.1) 04/08/20 21:09 Calcium 8.2 mg/dL (8.4-10.2) L 04/10/20 05:49 Phosphorus 3.8 mg/dL (2.5-4.5) 04/09/20 06:18 Magnesium 2.1 mg/dL (1.6-2.3) 04/09/20 06:18 Total Bilirubin 0.7 mg/dL (0.2-1.3) 04/08/20 19:03 Direct Bilirubin 0.3 mg/dL (0.0-0.4) 04/08/20 19:03 Neonat Total Bilirubin Not Reportable 04/08/20 19:03 Neonat Direct Bilirubin Not Reportable 04/08/20 19:03 Neonat Indirect Bili Not Reportable 04/08/20 19:03 AST 40 U/L (17-59) 04/08/20 19:03 ALT 51 U/L (<50) H 04/08/20 19:03 Alkaline Phosphatase 77 U/L (38-126) 04/08/20 19:03 Total Protein 6.6 g/dL (6.3-8.2) 04/08/20 19:03 Albumin 3.1 g/dL (3.5-5.0) L 04/08/20 19:03 TSH 0.55 uIU/mL (0.47-4.68) 04/09/20 06:18 Curt Human Metapneumo PCR NOT DETECTED (NOT DETECT) 04/08/20 21:57 POC Stool Occult Blood POSITIVE (NEGATIVE) 04/08/20 18:27 Stl C. Difficile GDH Ag POSITIVE (NEGATIVE) 04/09/20 05:59 Stl C.difficile Tox A&B POSITIVE (NEGATIVE) 04/09/20 05:59 Adenovirus (PCR) NOT DETECTED (NOT DETECT) 04/08/20 21:57 B. pertussis DNA (PCR) NOT DETECTED (NOT DETECT) 04/08/20 21:57 B.parapertussis DNA PCR NOT DETECTED (NOT DETECT) 04/08/20 21:57 C. pneumoniae DNA (PCR) NOT DETECTED (NOT DETECT) 04/08/20 21:57 Coronavirus OC43 (PCR) NOT DETECTED (NOT DETECT) 04/08/20 21: Coronavirus HKU1 (PCR) NOT DETECTED (NOT DETECT) 04/08/20: Coronavirus 229E (PCR) NOT DETECTED (NOT DETECT) 04/08/20 21: Coronavirus NL63 (PCR) NOT DETECTED (NOT DETECT) 04/08/20 21:57 Influenza A (H1) PCR NOT DETECTED (NOT DETECT) 04/08/20 21: Influ A (H1N1/09) PCR NOT DETECTED (NOT DETECT) 04/08/20 21:57 Influenza A (H3) PCR NOT DETECTED (NOT DETECT) 04/08/20 21:57 Influenza Type A (PCR) NOT DETECTED (NOT DETECT) 04/08/20 21:57 Influenza Type B (PCR) NOT DETECTED (NOT DETECT) 04/08/20 21:57 M. pneumoniae (PCR) NOT DETECTED (NOT DETECT) 04/08/20 21:57 Parainfluenza 1 (PCR) NOT DETECTED (NOT DETECT) 04/08/20 21: Parainfluenza 2 (PCR) NOT DETECTED (NOT DETECT) 04/08/20 21:57 Parainfluenza 3 (PCR) NOT DETECTED (NOT DETECT) 04/08/20 21:57 Parainfluenza 4 (PCR) NOT DETECTED (NOT DETECT) 04/08/20 21:57 RSV (PCR) NOT DETECTED (NOT DETECT) 04/08/20 21:57 Entero/Rhino (PCR) NOT DETECTED (NOT DETECT) 04/08/20 21:57 SARS-CoV-2 (PCR) DETECTED (NOT DETECT) H 04/08/20 21:57 Impressions: Foot X-Ray 04/08/20 18:29 IMPRESSION: Soft tissue swelling with subcutaneous gas overlying the 1st digit metatarsal head. Mild sclerotic appearance of the metatarsal head with no destructive features may represent acute or chronic osteomyelitis. Clinical correlation recommended. MRI may provide additional information as clinically indicated. Plan Time Spent: Greater than 30 Minutes Stroke Is this a Stroke Patient?: No Acute Heart Failure Is this a Heart Failure Patient?: No
[2020-04-11] MEDS: AMOXICILLIN TR/POT CLAVULANATE 875-125 MG TAB PO SCH (11:43)
[2020-04-11] MEDS: INSULIN LISPRO 100 UNIT/ML 3 ML VIAL SUBCUT SCH ×3 (12:30→18:10)
[2020-04-11] MEDS: BUSPIRONE HCL 10 MG TABLET PO SCH ×2 (12:32→17:55)
[2020-04-11] MEDS: DOCUSATE SODIUM 100 MG CAPSULE PO SCH (12:32)
[2020-04-11] MEDS: SULFAMETHOXAZOLE/TRIMETHOPRIM 800-160 MG TABLET PO SCH (12:33)
[2020-04-11] MEDS: RISPERIDONE 0.25 MG TABLET PO SCH ×2 (12:33→17:55)
[2020-04-11 19:33] VITALS: BP 92/68
== END 2020-04-11 18:55 | DRG 637 ==
LOC: ER 18:01 → EH 20:40 → 3S 04-09 00:45
PROVIDERS: ADMIT Internal Medicine; ATTEND Internal Medicine
DX: E11.69 Type 2 diabetes mellitus with other specified complication (principal); U07.1 COVID-19; E43 Unspecified severe protein-calorie malnutrition; M86.9 Osteomyelitis, unspecified; I48.19 Other persistent atrial fibrillation; A04.72 Enterocolitis due to Clostridium difficile, not specified as recurrent; E11.52 Type 2 diabetes mellitus with diabetic peripheral angiopathy with gangrene; I96 Gangrene, not elsewhere classified; R41.9 Unspecified symptoms and signs involving cognitive functions and awareness; N17.9 Acute kidney failure, unspecified; I12.9 Hypertensive chronic kidney disease with stage 1 through stage 4 chronic kidney disease, or unspecified chronic kidney disease; E11.22 Type 2 diabetes mellitus with diabetic chronic kidney disease; N18.2 Chronic kidney disease, stage 2 (mild); I10 Essential (primary) hypertension; G30.9 Alzheimer's disease, unspecified; F02.80 Dementia in other diseases classified elsewhere, unspecified severity, without behavioral disturbance, psychotic disturbance, mood disturbance, and anxiety; L89.152 Pressure ulcer of sacral region, stage 2; Z66 Do not resuscitate; E78.00 Pure hypercholesterolemia, unspecified; Z79.01 Long term (current) use of anticoagulants; I25.2 Old myocardial infarction; Z86.73 Personal history of transient ischemic attack (TIA), and cerebral infarction without residual deficits; Z89.412 Acquired absence of left great toe; Z89.511 Acquired absence of right leg below knee; I95.9 Hypotension, unspecified; Z79.4 Long term (current) use of insulin; Z79.899 Other long term (current) drug therapy; Z51.5 Encounter for palliative care
CPT/HCPCS: 0202U; 36415; 80048; 80053; 82270; 82962; 83605; 83735; 84100; 84443; 85025; 87324; 87449; 93005; 93010; 99285; C9803; J0692; J1815; J2270; J3370; J3490; J7030; J7060; J7120